=== PATIENT | female | born 1960 | race Caucasian/White ===

== ENCOUNTER 2020-01-19 14:57 | Emergency (ER) | payer BC, SELFPAY ==
--- NOTE | ~2020-01-19 | XR_ITS ---
XR chest 2V 01/19/2020 16:07 Indication: Cough and fever Procedure: 2 view chest Comparison: 09/20/2015 Findings: Bibasilar airspace disease. The lungs are hyperinflated which is consistent with, but not d iagnostic of chronic obstructive pulmonary disease. There are bilateral breast implants. No pleural e ffusion, edema or pneumothorax. Impression: 1: Bibasilar airspace disease may represent atelectasis or developing pneumonia. Reviewed, dictated and finalized at location A. Impression: 1: Bibasilar airspace disease may represent atelectasis or developing pneumonia .
[2020-01-19 15:10] VITALS: BP 148/81; PULSE 118; RESP 28; TEMP 39.5; O2SAT 95
[2020-01-19] MEDS: ACETAMINOPHEN 500 MG TABLET 1000 MG PO (15:30)
[2020-01-19] MEDS: IPRATROPIUM 0.5 MG/ALBUTEROL SULFATE 2.5 MG AMPUL.NEB 3 ML INHALATION ×2 (15:30→16:24)
[2020-01-19 15:33] VITALS: PULSE 106; RESP 24
[2020-01-19 15:47] LABS: Hematocrit 37.7 % (35.0-49.0); Hemoglobin 12.7 g/dL (12.0-15.0); Mean Corpuscular HGB Conc 33.7 g/dL (32.0-36.0); Mean Corpuscular Hemoglobin 32.3 pg (27.0-31.0); Mean Corpuscular Volume 95.9 fL (78.0-102.0); Mean Platelet Volume 8.9 fl (9.2-11.8); Platelet Count Result 329 K/mm3 (150-420); Red Blood Count 3.93 M/mm3 (4.20-5.40); Red Cell Distribution Width 12.5 % (11.6-14.4); White Blood Count 15.7 K/mm3 (4.8-10.8)
[2020-01-19 15:55] LABS: Blood Urea Nitrogen 7 mg/dL (7-18); Calcium 8.9 mg/dL (8.5-10.1); Carbon Dioxide 24 mmol/L (21-32); Chloride 104 mmol/L (98-108); Estimated Glomerular Filt Rate > 60; Glucose 86 mg/dL (70-99); Osmolality Calculated 285 mOsm/kg (285-295); Sodium 139 mmol/L (136-145)
[2020-01-19 16:02] LABS: Influenza Control Valid (Valid)
--- NOTE | 2020-01-19 16:02 | ED.URI ---
HPI - URI/Sore Throat General Chief Complaint: Upper Respiratory Infection Stated Complaint: fever, cough, hot/cold flashes, rib area pain Source: patient Mode of arrival: ambulatory Limitations: no limitations History of Present Illness HPI Narrative: 61-year-old female with a history of COPD. On December 24 she developed a cough which was treated with a 12 day tapering dose of steroids and Z-Aaron. She became markedly better but the cough never completely resolved. One week ago her cough became worse. Two days ago she had a fever of a 101? and increased coughing with shortness of breath and shaking. She felt better yesterday; today coughing, SOB and shaking were worse assoc. with fever of 101?. Today she developed right anterior chest pain made worse with breathing and palpation. For the last 3 days she has had diarrhea but denies abdominal pain/ dysuria. She has not smoked since her dx. of COPD 1 year ago. She has been using her Symbicort and Spiriva regularly, nebulizing albuterol once a day at night. Related Data Home Medications Medication Instructions Recorded Confirmed budesonide-formoterol [Symbicort] 2 puff INHALATION Q12H 01/19/20 01/19/20 bupropion HCl 300 mg PO DAILY 01/19/20 01/19/20 clonazepam 0.5 mg PO BID PRN 01/19/20 01/19/20 levalbuterol HCl 0.63 mg INHALATION Q8-10H PRN 01/19/20 01/19/20 montelukast 10 mg PO DAILY 01/19/20 01/19/20 tiotropium bromide [Spiriva with 1 cap INHALATION DAILY 01/19/20 01/19/20 HandiHaler] Allergies Allergy/AdvReac Type Severity Reaction Status Date / Time Penicillins Allergy Rash Verified 01/19/20 15:21 Review of Systems Constitutional: Constitutional: Reports no additional constitutional complaints Eyes: Comments: no eye symptoms ENT: Denies sore throat Cardiovascular: Cardiovascular: Reports as per HPI and Reports chest pain Respiratory: Respiratory: Reports no additional respiratory complaints Gastrointestinal: Gastrointestinal: Reports no additional gastrointestinal complaints and Denies abdominal pain Genitourinary: Genitourinary: Denies dysuria Musculoskeletal: Comments: negative Integumentary/Breasts: Comments: . Neurologic: Comments: chronic headaches, not recently worse. FORMERLY [facility], [facility] Past Medical History Medical History COPD (chronic obstructive pulmonary disease) Social History Social History (Updated 01/20/20 @ 02:52 by Parvez Hardy MD) Smoking status: Former smoker Gender identity (if verbalized by the patient): Female Exam Const: Other: Speaks in full sentences with some labored breathing. HENMT: Face and sinus: sinuses nontender Mouth: Yes moist mucous membranes Neck: Neck: no lymphadenopathy Chest: Other: tender along the right 4th rib, mid-clavicular line. Resp: Effort & Inspection: labored Auscultation: rales (bases) bilateral, wheezes and diminished lung sounds bilateral and diffuse Other: minor supraclavicular retraction Cardio: Rate: regular rate Rhythm: regular rhythm GI: GI Palp: Yes Soft to palpation and No Tenderness to palpation present (GI) : General: Yes no CVA tenderness Skin: Rashes: no rashes Neuro: General: patient oriented x3 Extrem: General: normal to inspection Course Course Emergency Course: Drop of pulse and RR after neb duoneb x 2 and prednisone. Pt does not want to be admitted. Agrees to treatment recommendations, to return if worse and see PCP on 01/20. Vital Signs Vital signs: Vital Signs Temperature 39.5 C H 01/19/20 15:10 Pulse Rate 118 H 01/19/20 15:10 Respiratory Rate 28 H 01/19/20 15:10 Blood Pressure 148/81 H 01/19/20 15:10 Pulse Oximetry 95 01/19/20 15:10 Temperature 37.1 C 01/19/20 17:35 Pulse Rate 90 01/19/20 18:42 Respiratory Rate 20 01/19/20 18:42 Blood Pressure 105/65 01/19/20 18:42 Pulse Oximetry 95 01/19/20 18:42 MDM - URI/Sore Throat Lab Data Result diagra
[2020-01-19 16:03] LABS: Lactic Acid 1.5 mmol/L (0.4-2.0)
[2020-01-19] MEDS: predniSONE 20 MG TABLET 60 MG PO (16:24)
[2020-01-19 16:25] VITALS: PULSE 107; RESP 20
[2020-01-19 16:30] VITALS: BP 108/62; PULSE 105; RESP 20; O2SAT 100
[2020-01-19 17:35] VITALS: BP 103/62; PULSE 105; RESP 20; TEMP 37.1; O2SAT 95
[2020-01-19] MEDS: levoFLOXacin TAB 500 MG, levoFLOXacin TAB 250 MG 750 MG PO (18:20)
[2020-01-19] MEDS: POTASSIUM CHLORIDE 20 MEQ TABLET PO (18:20)
[2020-01-19 18:42] VITALS: BP 105/65; PULSE 90; RESP 20; O2SAT 95
== END 2020-01-19 18:42 | disposition home or self-care (01) ==
PROVIDERS: Emergency Provider Family Medicine; PCP Internal Medicine
DX: J44.1 Chronic obstructive pulmonary disease with (acute) exacerbation (principal); E87.6 Hypokalemia; R07.81 Pleurodynia; J18.9 Pneumonia, unspecified organism; Z87.891 Personal history of nicotine dependence
CPT/HCPCS: 36415; 71046; 80048; 83605; 85027; 87040; 87077; 87186; 87804; 94640; 99283; 99284; A9270; J7512

== ENCOUNTER 2020-07-11 13:33 | Outpatient (CLI) | payer BC, SELFPAY ==
--- NOTE | ~2020-07-11 | CT_ITS ---
EXAMINATION:CT lung screening DATE: 07/11/2020 14:17 INDICATION: Personal history of nicotine dependence. Smoker who quit 4 years ago with 40 pack year hi story. TECHNIQUE: Computed tomography (CT) of the chest was performed without intravenous contrast. Automate d exposure control and iterative reconstruction technique were employed. The dose-length product (DLP ) was 76.02 mGy-cm. COMPARISON: Chest CT 08/11/2018 FINDINGS: There is severe emphysema. There is mild scarring at the lung apices. A calcified right sahara g nodule and calcified right hilar lymph nodes are consistent with old granulomatous disease. There i s chronic collapse of right middle lobe. No pleural effusion. The heart size is normal. No pericardia l effusion. There is a 4.2 cm fusiform aneurysm of ascending aorta. There are bilateral breast implan ts. Calcifications in the spleen are consistent with old granulomatous disease. There is mild thoraci c spondylosis. IMPRESSION: 1. Lung-RADS category 2: Benign appearance or behavior. Continue annual screening with noncontrast lo w-dose chest CT in 12 months. Reviewed, dictated and finalized at location A. IMPRESSION: 1. Lung-RADS category 2: Benign appearance or behavior. Continue annual screeni ng with noncontrast low-dose chest CT in 12 months.
== END 2020-07-11 13:34 | disposition home or self-care (01) ==
PROVIDERS: PCP Internal Medicine; Visit Provider Internal Medicine
DX: Z12.2 Encounter for screening for malignant neoplasm of respiratory organs (principal); Z87.891 Personal history of nicotine dependence
CPT/HCPCS: G0297

== ENCOUNTER 2020-07-25 08:52 | Outpatient (CLI) | payer BC, SELFPAY ==
--- NOTE | 2020-08-21 09:37 | WPDHOLTEREM ---
Holter/Event Monitor Holter/Event Monitor Date of procedure: 07/25/20 Procedure Type: 30 day event monitor Indications: Palpitations Conclusion: 1. 23 days event monitor between 07/25/20-08/21/20. There are 28 available transmissions for analysis. 2. Predominant rhythm is sinus rhythm. HR range 48-162 bpm; average HR 80 bpm. 3. There are occasional premature supraventricular complexes with a burden of 2%. 1 episode of supraventricular tachycardia lasting 12 beats at 162 bpm on 08/15/20 at 12:23. 4. There are occasional premature ventricular complexes with total burden of 1%. No ventricular tachycardia. 5. No significant pauses greater than 2 seconds. 6. Patient reports 11 symptoms of heart racing, lightheadedness, shortness of breath which demonstrate sinus rhythm, HR range 71-113 bpm with PAC's and PVC's in 9 out of 11 episodes.
== END 2020-07-25 08:53 | disposition home or self-care (01) ==
PROVIDERS: PCP Internal Medicine; Visit Provider Internal Medicine
DX: R00.2 Palpitations (principal); J44.9 Chronic obstructive pulmonary disease, unspecified
CPT/HCPCS: 93270; 94060; 94726; 94729

== ENCOUNTER 2020-09-08 09:36 | Outpatient (CLI) | payer BC, SELFPAY ==
[2020-09-08 09:53] VITALS: O2SAT 98
[2020-09-08 10:03] VITALS: PULSE 110; O2SAT 94
--- NOTE | 2020-09-08 10:07 | HOMEO2EVAL ---
Home Oxygen Evaluation RC: Home Oxygen (O2) Evaluation Start: 09/08/20 10:02 Freq: Status: Active Protocol: RPE Activity Type Activity Date Activity User E-Sign Co-Sign Detail Recorded Client Recorded Date Recorded By Document 09/08/20 09:53 SJB [id number] 09/08/20 10:07 SJB Document 09/08/20 10:03 SJB [id number] 09/08/20 10:07 SJB 09/08/20 09/08/20 09:53 10:03 Home O2 Evaluation Test Phase Resting Exercise Oxygen Delivery Room Air Room Air Pulse Oximetry (90-100 %) 98 94 Pulse Rate (60-100 beats/min) 110 H Activity Tolerance Good Good Rating of Perceived Dyspnea (PD) +1 Mild, +1 Mild, Noticeable to Noticeable to the Participant the Participant but Not to an but Not to an Observer Observer Rate of Perceived Exertion (PE) 9 Very light Ambulation Distance (feet) 1,500 Home Oxygen Evaluation Comments Pt walked independently approx 1500 ft on room air. Tolerated very well. Sp02s remained between 92-98%. Hr ranged from 84-115. Treatment Charges O2 Evaluation
== END 2020-09-08 09:37 | disposition home or self-care (01) ==
LOC: CHSCARD 09:41
PROVIDERS: PCP Internal Medicine
DX: J43.2 Centrilobular emphysema (principal)
CPT/HCPCS: 94618

== ENCOUNTER 2020-11-14 14:57 | Outpatient (CLI) | payer SELFPAY | END 2020-11-14 14:58 | disposition home or self-care (01) | LOC: CHSLAB 15:00 | PROVIDERS: PCP Internal Medicine; Visit Provider Specialist | DX: L28.1 Prurigo nodularis (principal) | CPT/HCPCS: 88305 ==

== ENCOUNTER 2021-01-15 13:50 | Outpatient (CLI) | payer BC, SELFPAY | END 2021-01-15 13:51 | disposition home or self-care (01) | LOC: ANHCOVIDVC 13:50 | PROVIDERS: PCP Internal Medicine; Visit Provider Internal Medicine | DX: Z23 Encounter for immunization (principal) | CPT/HCPCS: 0001A; 91300 ==

== ENCOUNTER 2021-02-05 13:42 | Outpatient (CLI) | payer BC, SELFPAY | END 2021-02-05 13:43 | disposition home or self-care (01) | LOC: ANHCOVIDVC 13:42 | PROVIDERS: PCP Internal Medicine; Visit Provider Internal Medicine | DX: Z23 Encounter for immunization (principal) | CPT/HCPCS: 0002A; 91300 ==

== ENCOUNTER 2021-07-20 08:29 | Outpatient (CLI) | payer BC, SELFPAY ==
--- NOTE | ~2021-07-20 | XR_ITS ---
EXAMINATION: XR barium swallow DATE: 07/20/2021 09:19 INDICATION: Dysphagia, postnasal drip TECHNIQUE: The patient drank thick barium, gas-producing crystals, and thin barium. Fluoroscopy of th e hypopharynx and esophagus was performed. Fluoroscopy exposure time was 1.2 minutes. The DAP for thi s procedure was 2.9 Gycm2. COMPARISON: None. FINDINGS: There is no mass or stricture of the esophagus. There is prominent contraction of the crico pharyngeus muscle. Esophageal motility is normal. There is no hiatal hernia. There was no gastroesoph ageal reflux with provocative maneuvers. IMPRESSION: 1. Prominent cricopharyngeus contraction, otherwise unremarkable esophagram. Reviewed, dictated and finalized at location B.
== END 2021-07-20 08:30 | disposition home or self-care (01) ==
LOC: CHSIMG 08:30
PROVIDERS: PCP Internal Medicine; Visit Provider Internal Medicine
DX: R13.10 Dysphagia, unspecified (principal)
CPT/HCPCS: 74220

== ENCOUNTER 2021-07-26 16:16 | Outpatient (CLI) | payer BC, SELFPAY ==
[2021-07-26 17:25] LABS: SARS-CoV-2 RNA PCR Positive (Negative)
== END 2021-07-26 16:17 | disposition home or self-care (01) ==
LOC: CHSLAB 16:18
PROVIDERS: PCP Internal Medicine; Visit Provider Internal Medicine
DX: U07.1 COVID-19 (principal)
CPT/HCPCS: C9803; U0003; U0005

== ENCOUNTER 2021-07-31 10:32 | Outpatient (CLI) | payer BC, SELFPAY ==
--- NOTE | 2021-07-31 10:45 | PC.NURSE ---
Pt to room 211 amb. A&Ox3. Pt has no complaints today. Says she had a sore throat and a fever when first diagnosed last week but hasn't had symptoms for a couple of days. Oriented to room. Call lewis in reach. Reminded to call with needs.
--- NOTE | 2021-07-31 11:00 | PC.NURSE ---
Consent signed for [employer]. Pt has no questions or concerns.
[2021-07-31] MEDS: ACETAMINOPHEN 325 MG TABLET 650 MG PO (11:05)
[2021-07-31] MEDS: FAMOTIDINE 20 MG TABLET PO (11:06)
--- NOTE | 2021-07-31 11:24 | PC.NURSE ---
Pt complains of severe back pain. Infusion stopped. Pt changed position in bed. Pt has no other sympton or complaints. Will continue to observe.
[2021-07-31 11:25] VITALS: BP 119/83; PULSE 75; RESP 20; TEMP 36.1; O2SAT 95
[2021-07-31] MEDS: methylPREDNISolone SOD SUCC 40 MG VIAL IV PUSH (11:41)
--- NOTE | 2021-07-31 11:41 | PC.NURSE ---
Pt has no complaints at present. Solumedrol 40mg given IV push per Dr. Moore order. IV infusion restarted as ordered. Reminded to call with needs or complaints.
--- NOTE | 2021-07-31 12:08 | PC.NURSE ---
IV infusion continues. Pt has no complaints. Call lewis in reach. Reminded to call with needs or symptoms.
--- NOTE | 2021-07-31 12:43 | PC.NURSE ---
IV infused. Pt tolerated well. Pt has no questions or complaints. Continues to rest per bed for continued observation.
--- NOTE | 2021-07-31 13:15 | PC.NURSE ---
Pt has no question or complaints. A&Ox3. Discharged to home ambulatory with .
== END 2021-07-31 10:33 | disposition home or self-care (01) ==
PROVIDERS: PCP Internal Medicine; Visit Provider Internal Medicine
DX: Z23 Encounter for immunization (principal); U07.1 COVID-19; M54.9 Dorsalgia, unspecified
CPT/HCPCS: 96374; A9270; J2920; J7050; M0243

== ENCOUNTER 2021-09-11 09:10 | Outpatient (CLI) | payer BC, SELFPAY ==
--- NOTE | ~2021-09-11 | XR_ITS ---
EXAMINATION: XR chest 2V DATE: 09/11/2021 10:45 INDICATION: Emphysema and COPD TECHNIQUE: PA and lateral views of the chest are obtained. COMPARISON: 01/19/2020 FINDINGS: The lungs are free of acute opacities. There is no pleural effusion or pneumothorax. The ca rdiomediastinal silhouette is normal. There is mild thoracic spondylosis. Bilateral breast implants a re noted. IMPRESSION: 1. No acute cardiopulmonary abnormality. Reviewed, dictated and finalized at location B.
[2021-09-11 09:15] VITALS: PULSE 100; O2SAT 98
[2021-09-11 09:22] VITALS: PULSE 130; O2SAT 90
--- NOTE | 2021-09-11 10:16 | HOMEO2EVAL ---
Evaluation was performed at [facility] [place] Home Oxygen Evaluation RC: Home Oxygen (O2) Evaluation Start: 09/11/21 10:10 Freq: Status: Active Protocol: RPE Activity Type Activity Date Activity User E-Sign Co-Sign Detail Recorded Client Recorded Date Recorded By Document 09/11/21 09:15 HAL [id number] 09/11/21 10:16 HAL Document 09/11/21 09:22 HAL [id number] 09/11/21 10:16 HAL 09/11/21 09/11/21 09:15 09:22 Home O2 Evaluation Test Phase Resting Exercise Oxygen Delivery Room Air Room Air Pulse Oximetry (90-100 %) 98 90 Pulse Rate (60-100 beats/min) 100 130 H Activity Tolerance Excellent Rating of Perceived Dyspnea (PD) +2 Mild, Some Difficulty, Noticeable to the Observer Rate of Perceived Exertion (PE) 11 Fairly light Ambulation Distance (feet) 1,400 Home Oxygen Evaluation Comments Patient walked briskly on her own without pausing. Sp02 stable 90-93% during exercise . HR 100-130 during exercise . Treatment Charges O2 Evaluation - Outpatient
== END 2021-09-11 09:11 | disposition home or self-care (01) ==
LOC: CHSLAB 09:13 → CHSIMG 09:13
PROVIDERS: PCP Internal Medicine; Visit Provider Internal Medicine
DX: J43.9 Emphysema, unspecified (principal)
CPT/HCPCS: 71046; 94060; 94618; 94726; 94729

== ENCOUNTER 2021-09-27 08:22 | Outpatient (CLI) | payer BC, SELFPAY ==
--- NOTE | 2021-09-27 10:30 | ECHO_ITS ---
Patient Info Name: Michelle Lim Age: 61 years : 1960 Gender: Female Ht: 69 in Wt: 157 lbs BSA: 1.86 m2 HR: 79 bpm BP: 135 / 86 mmHg Exam Date: 09/27/2021 9:31 AM Exam Location: [facility] Patient Status: Outpatient Admit Date: 09/27/2021 Staff Ordering Physician: Leeann Harrington MD Bilingual Patient Support Caseworker: Estephania Attending Provider: Leeann Harrington MD Exam Type: CA echo doppler color flow Study Info Indications I10 - Essential (primary) hypertension Complete two-dimensional, color flow and Doppler transthoracic echocardiogram is performed. Strain analysis performed. Summary 1. Complete two-dimensional, color flow and Doppler transthoracic echocardiogram is performed. 2. Left ventricular chamber dimension is mildly enlarged. 3. Left ventricular systolic function is moderately reduced, estimated at 40-45%. 4. The left ventricular diastolic function is grade I diastolic dysfunction. 5. E/e' 5 is not elevated. 6. Global longitudinal strain is slightly abnormal at -16.5%. 7. There is mild aortic valve sclerosis. 8. There is mild mitral valve regurgitation. 9. There is mild tricuspid valve regurgitation. 10. No pulmonary hypertension, estimated pulmonary arterial systolic pressure is 31 mmHg. 11. There is mild pulmonic regurgitation. Left Ventricle E/e' 5 is not elevated. Global longitudinal strain is slightly abnormal at -16.5%. Left ventricular chamber dimension is mildly enlarged. Left ventricular systolic function is moderately reduced, estimated at 40-45%. The left ventricular diastolic function is grade I diastolic dysfunction. Right Ventricle Right ventricular systolic function is normal and normal TAPSE 1.9 cm.. Right ventricular chamber dimension is normal. Left Atria Left atrial chamber dimension is normal. Right Atria Right atrial chamber dimension is normal. Aortic Valve The aortic valve is trileaflet. There is mild aortic valve sclerosis. There is no aortic valve stenosis. There is no aortic valve regurgitation. Pulmonic Valve There is mild pulmonic regurgitation. Mitral Valve There is no mitral valve stenosis. There is mild mitral valve regurgitation. Tricuspid Valve There is mild tricuspid valve regurgitation. No pulmonary hypertension, estimated pulmonary arterial systolic pressure is 31 mmHg. Pericardium/Pleural There is no pericardial effusion. Inferior Vena Cava Normal inferior vena cava with >50% collapse upon inspiration consistent with normal right atrial pressure, 5 mmHg. Aorta The aortic root size at the sinus of Valsalva is normal. Left Ventricular Outflow Tract Name Value Normal LVOT 2D LVOT Diameter 2.6 cm LVOT Doppler LVOT Peak Velocity 58 cm/s LVOT Peak Gradient 1 mmHg LVOT Mean Gradient 1 mmHg LVOT VTI 11 cm LVOT VTI/AV VTI Ratio 0.5 LVOT Stroke Volume 59 ml Mitral Valve Name
== END 2021-09-27 08:23 | disposition home or self-care (01) ==
LOC: CHSIMG 08:23
PROVIDERS: PCP Internal Medicine
DX: J43.2 Centrilobular emphysema (principal); I27.20 Pulmonary hypertension, unspecified
CPT/HCPCS: 93306

== ENCOUNTER → 2021-12-31 12:12 | Outpatient (CLI) | payer BC, SELFPAY ==
--- NOTE | ~2021-12-31 | MM_ITS ---
EXAMINATION: MM scrn lorrie implant BI w quentin HISTORY: Screening mammogram TECHNIQUE: Craniocaudal and mediolateral oblique 3-D tomosynthesis images with implant displacement a nd synthetic 2-D images were generated. Craniocaudal and mediolateral oblique views of the breasts wi thout implant displacement were obtained using full field digital mammography. CAD analysis was submi tted and interpreted. COMPARISON: 08/05/2019, 04/27/2018 bilateral implant screening mammogram examinations BREAST PARENCHYMAL COMPOSITION: There are scattered areas of fibroglandular density. FINDINGS: Status post bilateral augmentation mammoplasty.. There is no evidence of suspicious mass, c alcification, or architectural distortion to suggest malignancy in either breast. There has been no s uspicious interval change. IMPRESSION: 1. No mammographic evidence of malignancy. 2. Recommend routine screening mammography in one year. BI-RADS Category 1: Negative Reviewed, dictated and finalized at location A. ER LATHE OPERATOR
== END ==
PROVIDERS: PCP Internal Medicine; Visit Provider Internal Medicine
DX: Z12.31 Encounter for screening mammogram for malignant neoplasm of breast (principal)
CPT/HCPCS: 77063; 77067

== ENCOUNTER 2022-02-07 08:00 | Outpatient (RCR) | payer SELFPAY | END 2022-04-11 14:15 | disposition home or self-care (01) | LOC: CHSCPRIII 08:00 | PROVIDERS: PCP Internal Medicine | DX: J44.9 Chronic obstructive pulmonary disease, unspecified (principal) | CPT/HCPCS: 99199 ==

== ENCOUNTER 2022-07-01 12:59 | Outpatient (CLI) | payer BC, SELFPAY ==
--- NOTE | ~2022-07-01 | XR_ITS ---
EXAMINATION: XR chest 2V DATE: 07/01/2022 13:22 INDICATION: Shortness of breath and cough, COVID 19 positive TECHNIQUE: PA and lateral views of the chest are obtained. COMPARISON: 09/11/2021 FINDINGS: The lungs are free of acute opacities. Severe emphysema is noted. No pleural effusion or pn eumothorax. The cardiomediastinal silhouette is normal. Bilateral breast implants are noted. There is mild thoracic spondylosis. IMPRESSION: 1. Severe emphysema. Reviewed, dictated and finalized at location B. IMPRESSION: 1. Severe emphysema.
[2022-07-01 13:26] LABS: Basophils Absolute Auto 0.05 K/mm3 (0.00-0.10); Basophils Percent Auto 0.8 % (0.0-1.0); Eosinophils Absolute Auto 0.05 K/mm3 (0.02-0.50); Eosinophils Percent Auto 0.8 % (1.0-6.0); Hematocrit 43.9 % (35.0-49.0); Hemoglobin 14.3 g/dL (12.0-15.0); Immature Granulocyte Absolute 0.02 K/mm3 (0.00-0.00); Immature Granulocyte Percent A 0.3 % (0.0-0.0); Lymphocytes Absolute Auto 0.96 K/mm3 (1.10-4.50); Lymphocytes Percent Auto 14.5 % (18.0-42.0); Mean Corpuscular HGB Conc 32.6 g/dL (32.0-36.0); Mean Corpuscular Hemoglobin 31.7 pg (27.0-31.0); Mean Corpuscular Volume 97.3 fL (78.0-102.0); Mean Platelet Volume 8.8 fl (9.2-11.8); Monocytes Absolute Auto 1.09 K/mm3 (0.10-0.90); Monocytes Percent Auto 16.5 % (2.0-11.0); Neutrophils Absolute Auto 4.4 K/mm3 (1.7-7.2); Neutrophils Percent Auto 67.1 % (50.0-70.0); Platelet Count Result 269 K/mm3 (150-420); Red Blood Count 4.51 M/mm3 (4.20-5.40); Red Cell Distribution Width 12.1 % (11.6-14.4); White Blood Count 6.6 K/mm3 (4.8-10.8)
[2022-07-01 13:48] LABS: Alanine Aminotransferase 27 U/L (14-59); Alkaline Phosphatase 85 U/L (46-116); Anion Gap 7 mmol/L (8-16); Aspartate Amino Transferase 21 U/L (15-37); Bilirubin,Total 0.4 mg/dL (0.00-1.00); Blood Urea Nitrogen 7 mg/dL (7-18); Calcium 8.8 mg/dL (8.5-10.1); Carbon Dioxide 28 mmol/L (21-32); Chloride 104 mmol/L (98-108); Estimated Glomerular Filt Rate > 60; Glucose 89 mg/dL (70-99); Osmolality Calculated 285 mOsm/kg (285-295); Potassium 3.9 mmol/L (3.5-5.1); Sodium 139 mmol/L (136-145); Total Protein 7.2 g/dL (6.4-8.2)
== END 2022-07-01 13:00 | disposition home or self-care (01) ==
LOC: CHSLAB 13:01
PROVIDERS: PCP Internal Medicine; Visit Provider Nurse Practitioner Family
DX: U07.1 COVID-19 (principal); J06.9 Acute upper respiratory infection, unspecified
CPT/HCPCS: 36415; 71046; 80053; 85025

== ENCOUNTER 2022-09-20 14:08 | Emergency (ER) | payer MEDICARE, SELFPAY ==
[2022-09-20 14:16] VITALS: BP 128/89; PULSE 84; RESP 16; TEMP 36.4; O2SAT 99
--- NOTE | 2022-09-20 14:33 | ED.SKABFB ---
HPI - Skin/Abscess/Foreign Bdy General Chief complaint: Skin/Abscess/Foreign Body Stated complaint: rash and itchy on head since friday Time Seen by Provider: 09/20/22 14:12 Source: patient and RN notes reviewed Mode of arrival: ambulatory Limitations: no limitations History of Present Illness MD complaint: rash Onset (ago): day(s) (3) Location: head and face Severity: mild Quality: pruritic Pain Consistency: other (pain-free) Relieving factors: none Exacerbating factors: none Context: other (known eczema) Associated symptoms: denies other symptoms Treatments prior to arrival: none Related Data Home Medications Medication Instructions Recorded Confirmed budesonide-formoterol HFA 160 2 puff inhalation Q12H 01/19/20 08/09/21 mcg-4.5 mcg/actuation aerosol inhaler (Symbicort) bupropion HCl 150 mg tablet,12 hr 300 mg PO DAILY 01/19/20 08/09/21 sustained-release clonazepam 0.5 mg tablet 0.5 mg PO BID PRN Anxiety 01/19/20 08/09/21 montelukast 10 mg tablet 10 mg PO DAILY 01/19/20 08/09/21 tiotropium bromide 18 mcg capsule 1 cap inhalation DAILY 01/19/20 08/09/21 with inhalation device (Spiriva with HandiHaler) Allergies Allergy/AdvReac Type Severity Reaction Status Date / Time Penicillins Allergy Rash Verified 08/09/21 13:44 Review of Systems Review of Systems: All systems reviewed & are unremarkable except as noted in HPI and below Constitutional: Constitutional: Reports no additional constitutional complaints Eyes: Eyes: Reports no additional eye complaints ENT: Reports system reviewed and no additional complaints, except as documented Comments: scalp itchy rash Cardiovascular: Cardiovascular: Reports no additional cardiovascular complaints Respiratory: Respiratory: Reports no additional respiratory complaints Gastrointestinal: Gastrointestinal: Reports no additional gastrointestinal complaints Genitourinary: Genitourinary: Reports no additional female genitourinary complaints Musculoskeletal: Musculoskeletal: Reports no additional musculoskeletal complaints Integumentary/Breasts: Skin/Breast: Reports system reviewed and no additional complaints, except as docu Neurologic: Reports system reviewed and no additional complaints, except as documented Psychiatric: Psychiatric: Reports no additional psychiatric complaints Endocrine: Endocrine: Reports no additional endocrine complaints Hematologic/Lymphatic: Hematologic/Lymphatic: Reports no additional hematologic/lymphatic complaints Allergic/Immunologic: Allergic/Immunologic: Reports no additional allergic/immunologic complaints PMFSH Past Medical History Medical History Allergies Anxiety COPD (chronic obstructive pulmonary disease) Eczema Skin cancer Family History Family History Mother Asthma Hypertension Sibling Cancer Thyroid disorder Grandparent Hypertension Social History Social History Smoking status: Former smoker Alcohol intake: never Substance use: never Gender identity (if verbalized by the patient): Female Exam Const: General: no acute distress and well nourished Nutritional Appearance: well nourished Orientation/consciousness: patient oriented x3 Limitations: no limitations HENMT: Head: normal to inspection Ears: external ears normal, TM's normal bilaterally and EAC's normal Face/Nose/Sinus: Normal external nose present, Normal nares present, normal facial exam and sinuses nontender Face and sinus: normal facial exam and sinuses nontender Mouth: Yes Normal oral and palatal mucosa present and Yes moist mucous membranes Teeth and gingiva: dentition normal Throat: posterior oropharynx normal Other: mild scalp rash with excoriations Eyes: Conjunctivae: conjunctivae normal Pupils: Equal, round and reactive pupils present EO
[2022-09-20] MEDS: methylPREDNISolone SOD SUCC 125 MG VIAL IM (14:50)
[2022-09-20 15:24] VITALS: BP 122/84; PULSE 80; RESP 20; TEMP 36.6; O2SAT 98
== END 2022-09-20 15:29 | disposition home or self-care (01) ==
PROVIDERS: Emergency Provider Emergency Medicine; PCP Internal Medicine
DX: L30.9 Dermatitis, unspecified (principal); J44.9 Chronic obstructive pulmonary disease, unspecified; Z87.891 Personal history of nicotine dependence
CPT/HCPCS: 96372; 99283; J2930

== ENCOUNTER 2022-12-03 13:29 | Outpatient (CLI) | payer MEDICARE, SELFPAY ==
[2022-12-03 13:46] LABS: Basophils Absolute Auto 0.09 K/mm3 (0.00-0.10); Basophils Percent Auto 1.3 % (0.0-1.0); Eosinophils Absolute Auto 0.13 K/mm3 (0.02-0.50); Eosinophils Percent Auto 1.9 % (1.0-6.0); Hematocrit 42.4 % (35.0-49.0); Hemoglobin 13.9 g/dL (12.0-15.0); Immature Granulocyte Absolute 0.04 K/mm3 (0.00-0.00); Immature Granulocyte Percent A 0.6 % (0.0-0.0); Lymphocytes Absolute Auto 1.46 K/mm3 (1.10-4.50); Lymphocytes Percent Auto 21.2 % (18.0-42.0); Mean Corpuscular HGB Conc 32.8 g/dL (32.0-36.0); Mean Corpuscular Volume 97.5 fL (78.0-102.0); Mean Platelet Volume 8.9 fl (9.2-11.8); Monocytes Absolute Auto 0.61 K/mm3 (0.10-0.90); Monocytes Percent Auto 8.9 % (2.0-11.0); Neutrophils Absolute Auto 4.6 K/mm3 (1.7-7.2); Neutrophils Percent Auto 66.1 % (50.0-70.0); Platelet Count Result 352 K/mm3 (150-420); Red Blood Count 4.35 M/mm3 (4.20-5.40); Red Cell Distribution Width 12.3 % (11.6-14.4); White Blood Count 6.9 K/mm3 (4.8-10.8)
[2022-12-03 14:26] LABS: Alanine Aminotransferase 15 U/L (14-59); Albumin Level 4.2 g/dL (3.4-5.0); Alkaline Phosphatase 91 U/L (46-116); Anion Gap 11 mmol/L (8-16); Aspartate Amino Transferase 20 U/L (15-37); Bilirubin,Total 0.4 mg/dL (0.00-1.00); Blood Urea Nitrogen 9 mg/dL (7-18); Calcium 8.7 mg/dL (8.5-10.1); Carbon Dioxide 27 mmol/L (21-32); Chloride 104 mmol/L (98-108); Estimated Glomerular Filt Rate > 60; Free T3 2.37 pg/mL (2.18-3.98); Free T4 Free Thyroxine 0.86 ng/dL (0.76-1.46); Glucose 79 mg/dL (70-99); NT Pro B Type Natriuretic Pept 63 pg/mL (0-125); Osmolality Calculated 291 mOsm/kg (285-295); Potassium 4.3 mmol/L (3.5-5.1); Sodium 142 mmol/L (136-145); Thyroid Stimulating Hormone 4.65 uIU/mL (0.36-3.74); Total Protein 6.9 g/dL (6.4-8.2)
--- NOTE | 2022-12-05 12:41 | WPDHOLTEREM ---
Holter/Event Monitor Holter/Event Monitor Date of procedure: 12/03/22 Holter/Event Procedure: 24 Hr Holter Monitor Indications: Palpitations Conclusion: 1. 24 hour holter monitor on 12/03/22. 2. Predominant rhythm is sinus rhythm. HR range 59-148 bpm; average HR 86 bpm. 3. There are 199 premature supraventricular complexes and 1 supraventricular couplet. There is 1 episode of atrial tachycardia at 185 bpm lasting 4 beats at 11:22. 4. There are 410 premature ventricular complexes, 12 ventricular bigeminy. No ventricular tachycardia. 5. No sinoatrial or atrioventricular blocks. No significant pauses greater than 2 seconds. 6. Patient reports 1 episode of lightheadedness/off balance which demonstrate sinus tachycardia at 102 bpm.
== END 2022-12-03 13:30 | disposition home or self-care (01) ==
LOC: CHSLAB 13:32
PROVIDERS: PCP Internal Medicine; Visit Provider Internal Medicine
DX: R00.2 Palpitations (principal); R06.00 Dyspnea, unspecified
CPT/HCPCS: 36415; 80053; 83880; 84439; 84443; 84481; 85025; 93225; 93226

== ENCOUNTER 2023-02-24 18:07 | Emergency (ER) | payer MEDICARE, SELFPAY ==
[2023-02-24 18:07] VITALS: BP 134/94; PULSE 70; RESP 15; TEMP 36.8; O2SAT 99
--- NOTE | 2023-02-24 18:30 | ED.GENADULT ---
HPI - General Adult General Chief complaint: Back Pain/Injury Stated complaint: lower back pain Time Seen by Provider: 02/24/23 18:19 History of Present Illness HPI narrative: the patient is a 62-year-old woman with a history of COPD. she was pulling weeds from her garden 2 weeks ago when she developed pain in the lower back, in the center of the lower back radiating to both sides. Not radiating elsewhere such as to the buttocks or down either leg. The pain has been constant for the last 2 weeks, waxing and waning in intensity, improved by Tylenol but not completely relieved. No paresthesias in the lower extremities. No heavy lifting or twisting. No other complaints. No urinary complaints such as dysuria urinary urgency or frequency. No abdominal pain. No nausea vomiting. No fevers or chills. No URI symptoms. Related Data Home Medications Medication Instructions Recorded Confirmed bupropion HCl 150 mg tablet,12 hr 300 mg PO DAILY 01/19/20 02/24/23 sustained-release clonazepam 0.5 mg tablet 0.5 mg PO BID PRN Anxiety 01/19/20 02/24/23 tiotropium bromide 18 mcg capsule 1 cap inhalation DAILY 01/19/20 02/24/23 with inhalation device (Spiriva with HandiHaler) budesonide 160 mcg-glycopyr 9 2 inh inhalation BID 02/24/23 02/24/23 mcg-formot 4.8 mcg/actuation HFA inhaler (Breztri Aerosphere) Allergies Allergy/AdvReac Type Severity Reaction Status Date / Time Penicillins Allergy Rash Verified 02/24/23 18:21 Review of Systems Review of Systems: All systems reviewed & are unremarkable except as noted in HPI and below Constitutional: Constitutional: Reports as per HPI, Reports no additional constitutional complaints, Denies chills, Denies excessive sweating, Denies fatigue, Denies fever(s), Denies headache(s) and Denies weakness Eyes: Eyes: Reports as per HPI, Reports no additional eye complaints, Denies change in vision and Denies photophobia ENT: Reports system reviewed and no additional complaints, except as documented, Reports as per HPI, Denies dysphagia, Denies vertigo, Denies dizziness, Denies headache(s), Denies lip swelling, Denies nasal congestion, Denies sore throat, Denies throat swelling and Denies tongue swelling Cardiovascular: Cardiovascular: Reports as per HPI, Reports no additional cardiovascular complaints, Denies chest pain, Denies syncope, Denies rapid heart rate and Denies dyspnea Respiratory: Respiratory: Reports as per HPI, Reports no additional respiratory complaints, Denies chest congestion, Denies cough, Denies dyspnea and Denies wheezing Gastrointestinal: Gastrointestinal: Reports as per HPI, Reports no additional gastrointestinal complaints, Denies abdominal pain, Denies constipation, Denies dysphagia, Denies diarrhea, Denies nausea and Denies vomiting Genitourinary: Genitourinary: Reports as per HPI, Denies hematuria, Denies urinary frequency, Denies dysuria, Denies urinary incontinence and Denies urinary urgency Musculoskeletal: Musculoskeletal: Reports no additional musculoskeletal complaints, Reports back pain, Denies myalgias, Denies arthralgias, Denies joint swelling and Denies numbness Integumentary/Breasts: Skin/Breast: Reports system reviewed and no additional complaints, except as docu, Denies pruritus, Denies erythema, Denies rash and Denies skin ulcer Neurologic: Reports system reviewed and no additional complaints, except as documented, Reports as per HPI, Denies confusion, Denies vertigo, Denies dizziness, Denies syncope, Denies headache(s), Denies focal weakness, Denies numbness and Denies weakness Psychiatric: Psychiatric: Reports as per HPI, Denies anxiety, Denies confusion, Denies depression, Denies homicidal ideation and Denies suicidal ideation Endocrine: Endocrine: Reports no additional endocrine complaints, Denies excessive sweating, Denies fatigue, Denies polydipsia and Denies polyuria Hematologic/Lymphatic: Hematologic/Lymphatic: Reports no additional hematologic/lymph
== END 2023-02-24 18:53 | disposition home or self-care (01) ==
PROVIDERS: Emergency Provider Emergency Medicine; PCP Internal Medicine
DX: M54.50 Low back pain, unspecified (principal); J44.9 Chronic obstructive pulmonary disease, unspecified; Z85.828 Personal history of other malignant neoplasm of skin; Z87.891 Personal history of nicotine dependence
CPT/HCPCS: 99283

== ENCOUNTER 2023-09-01 13:10 | Emergency (ER) | payer MEDICARE, SELFPAY ==
[2023-09-01 13:18] VITALS: BP 133/97; PULSE 93; RESP 18; TEMP 36.9; O2SAT 97
--- NOTE | 2023-09-01 13:32 | ED.GENADULT ---
HPI - General Adult General Chief complaint: Unspecified Stated complaint: tick embedded Time Seen by Provider: 09/01/23 13:14 History of Present Illness HPI narrative: the patient is a 63-year-old woman who was [place] They have dogs in the household. She took a shower yesterday evening without incident. This morning, she noted a tick in the right lower quadrant of her abdomen that she has seems has been there since yesterday afternoon. No other symptoms. One attempt at removal was done at home with hot tweazers without success. She comes for evaluation. No symptoms of arthritis or carditis. No chest pain or dyspnea. No other complaints. No previous tick bites recently but did have them several decades ago. Related Data Home Medications Medication Instructions Recorded Confirmed bupropion HCl 150 mg tablet,12 hr 300 mg PO DAILY 01/19/20 09/01/23 sustained-release clonazepam 0.5 mg tablet 0.5 mg PO BID PRN Anxiety 01/19/20 09/01/23 tiotropium bromide 18 mcg capsule 1 cap inhalation DAILY 01/19/20 02/24/23 with inhalation device (Spiriva with HandiHaler) budesonide 160 mcg-glycopyr 9 2 inh inhalation BID 02/24/23 02/24/23 mcg-formot 4.8 mcg/actuation HFA inhaler (Breztri Aerosphere) montelukast 10 mg tablet 10 mg PO DAILY 09/01/23 09/01/23 Allergies Allergy/AdvReac Type Severity Reaction Status Date / Time Penicillins Allergy Rash Verified 09/01/23 13:15 Review of Systems Review of Systems: All systems reviewed & are unremarkable except as noted in HPI and below Constitutional: Constitutional: Denies chills, Denies excessive sweating, Denies fatigue, Denies fever(s), Denies headache(s) and Denies weakness Eyes: Eyes: Denies change in vision and Denies photophobia ENT: Denies dysphagia, Denies dizziness, Denies headache(s), Denies lip swelling, Denies nasal congestion, Denies sore throat and Denies tongue swelling Cardiovascular: Cardiovascular: Denies chest pain, Denies syncope, Denies rapid heart rate and Denies dyspnea Respiratory: Respiratory: Denies cough, Denies dyspnea and Denies wheezing Gastrointestinal: Gastrointestinal: Denies abdominal pain, Denies constipation, Denies dysphagia, Denies diarrhea, Denies nausea and Denies vomiting Genitourinary: Genitourinary: Denies hematuria, Denies urinary frequency, Denies dysuria and Denies urinary urgency Musculoskeletal: Musculoskeletal: Denies back pain, Denies myalgias, Denies arthralgias, Denies joint swelling and Denies numbness Integumentary/Breasts: Skin/Breast: Denies pruritus, Denies erythema and Denies rash Comments: tick stuck in RLQ of abdomen Neurologic: Denies confusion, Denies dizziness, Denies syncope, Denies headache(s), Denies focal weakness, Denies numbness and Denies weakness Psychiatric: Psychiatric: Denies anxiety and Denies confusion Endocrine: Endocrine: Denies excessive sweating and Denies fatigue Hematologic/Lymphatic: Hematologic/Lymphatic: Denies easy bleeding and Denies easy bruising Allergic/Immunologic: Allergic/Immunologic: Denies lip swelling, Denies tongue swelling and Denies wheezing PMFSH Past Medical History Medical History Allergies Anxiety COPD (chronic obstructive pulmonary disease) Eczema Skin cancer Family History Family History Mother Asthma Hypertension Sibling Cancer Thyroid disorder Grandparent Hypertension Social History Social History Smoking status: Former smoker Alcohol intake: never Substance use: never Gender identity (if verbalized by the patient): Female Exam Const: General: healthy appearing, no acute distress, alert and well nourished Nutritional Appearance: well nourished Orientation/consciousness: patient oriented x3 Limitations: no limi
[2023-09-01 13:58] VITALS: BP 133/97; PULSE 93; RESP 18; TEMP 36.9; O2SAT 97
== END 2023-09-01 14:05 | disposition home or self-care (01) ==
LOC: CHSED 13:46
PROVIDERS: Emergency Provider Emergency Medicine; PCP Internal Medicine
DX: S30.861A Insect bite (nonvenomous) of abdominal wall, initial encounter (principal); J44.9 Chronic obstructive pulmonary disease, unspecified; Z79.899 Other long term (current) drug therapy; Z85.828 Personal history of other malignant neoplasm of skin; Z87.891 Personal history of nicotine dependence; W57.XXXA Bitten or stung by nonvenomous insect and other nonvenomous arthropods, initial encounter
CPT/HCPCS: 99283

== ENCOUNTER 2024-02-22 22:19 | Observation (INO) | payer MEDICARE, SELFPAY ==
--- NOTE | ~2024-02-22 | CT_ITS ---
CT of the Abdomen and Pelvis: Indication: Abdominal Technique: 2.5 mm axial scans were obtained through the abdomen and pelvis following intravenous adm inistration of 100 cc of Omnipaque 350. Dose reduction technique was used on this scan by utilizing a utomated exposure control and iterative reconstruction technique. The dose-length product (DLP) was 4 44.82 mGy-cm. Findings: Scans through the lung bases are unremarkable. The liver, spleen, pancreas, gallbladder, adrenals and kidneys are within normal limits. No evidence of aortic aneurysm. No lymphadenopathy. No bowel obstruction. Appendix dilated to 9 mm with possible minimal perivesical inflammatory change. No abscess or free air. Images through the pelvis were performed. Urinary bladder unremarkable. No pelvic mass seen. No ascit es. Impression: Findings suspicious for early acute appendicitis. Reviewed, dictated and finalized at location . Impression: Findings suspicious for early acute appendicitis.
[2024-02-22 22:21] VITALS: BP 133/94; PULSE 110; RESP 19; TEMP 36.7; O2SAT 97
--- NOTE | 2024-02-22 22:36 | ED.ABDPAIN ---
HPI - Abdominal Pain General Chief Complaint: Abdominal Pain Stated Complaint: RLQ abd pain Time Seen by Provider: 02/22/24 22:28 History of Present Illness HPI narrative: 63-year-old female presents to emergency department for abdominal pain that started this morning. Patient states she woke up with a stomach ache in her epigastrium and periumbilical region. States she did not feel like eating breath this but ate a small amount of lunch. States her pain is persistent is now located in the right lower quadrant. She is concerned that there is something wrong with her appendix. She states she felt somewhat feverish earlier but did not log her temperature. She denies nausea vomiting, diarrhea, dysuria or hematuria. Denies prior abdominal surgeries. Last bowel movement was this morning and normal. Related Data Home Medications Medication Instructions Recorded Confirmed bupropion HCl 150 mg tablet,12 hr 300 mg PO DAILY 01/19/20 09/01/23 sustained-release clonazepam 0.5 mg tablet 0.5 mg PO BID PRN Anxiety 01/19/20 09/01/23 tiotropium bromide 18 mcg capsule 1 cap inhalation DAILY 01/19/20 02/24/23 with inhalation device (Spiriva with HandiHaler) budesonide 160 mcg-glycopyr 9 2 inh inhalation BID 02/24/23 02/24/23 mcg-formot 4.8 mcg/actuation HFA inhaler (Breztri Aerosphere) montelukast 10 mg tablet 10 mg PO DAILY 09/01/23 09/01/23 Allergies Allergy/AdvReac Type Severity Reaction Status Date / Time Penicillins Allergy Rash Verified 09/01/23 13:15 Review of Systems Review of Systems: CONSTITUTIONAL: Denies fever, chills, or sweats. EYES: Denies visual changes, redness, or discharge. ENT: Denies rhinorrhea, congestion, sore throat, or otalgia. CARDIOVASCULAR: Denies chest pain, palpitations, or edema. RESPIRATORY: Denies cough or dyspnea. GASTROINTESTINAL: See HPI GENITOURINARY: Denies dysuria or hematuria. SKIN: Denies rash or itching. MUSCULOSKELETAL: Denies back pain, joint pain, or myalgia. NEUROLOGIC: Denies headache, numbness, or weakness. PSYCHIATRIC: Denies anxiety or depression. [facility] Past Medical History Medical History Allergies Anxiety COPD (chronic obstructive pulmonary disease) Eczema Skin cancer Family History Family History Mother Asthma Hypertension Sibling Cancer Thyroid disorder Grandparent Hypertension Social History Social History Smoking status: Former smoker Alcohol intake: never Substance use: never Gender identity (if verbalized by the patient): Female Exam Narrative: GENERAL: Well-appearing, well-nourished, and in no acute distress. HEAD: Normocephalic, atraumatic. EYES: PERRLA and EOMI. ENT: Nares clear, no rhinorrhea or epistaxis. Mucous membranes moist. NECK: Supple. CHEST: Clear to auscultation. No respiratory distress. HEART: Regular rate and rhythm. No murmur heard. Normal peripheral pulses. ABDOMEN: quiet bowel sounds. Abdomen soft with tenderness in the right lower quadrant With voluntary guarding. No rebound or rigidity. Negative Rovsing's and obturator sign. Tenderness at McBurney's point. EXTREMITIES: Normal range of motion. No edema. SKIN: Warm, dry, no rash. NEURO: No focal deficits. Alert and oriented x3 Course Vital Signs Vital signs: Vital Signs Temperature 98.0 F 02/22/24 22:21 Pulse Rate 110 H 02/22/24 22:21 Respiratory Rate 19 02/22/24 22:21 Blood Pressure 133/94 H 02/22/24 22:21 Pulse Oximetry 97 02/22/24 22:21 Oxygen Delivery Room Air 02/22/24 22:21 Temperature 97.8 F 02/22/24 22:42 Pulse Rate 105 H 02/22/24 22:53 Respiratory Rate 16 02/22/24 22:53 Blood Pressure 138/104 H 02/22/24 22:53 Pulse Oximetry 99 02/22/24 22:53 Oxygen Delivery Room Air 02/22/24 22:21 MDM - Abdominal Pain
--- NOTE | 2024-02-22 22:39 | ECG_ITS ---
SEE SCANNED COPY FOR CONFIRMED REPORT MTDD
[2024-02-22 22:42] VITALS: BP 137/106; PULSE 106; RESP 15; TEMP 36.6; O2SAT 98
[2024-02-22 22:45] LABS: Basophils Absolute Auto 0.1 K/mm3 (0.0-0.1); Basophils Percent Auto 0.5 % (0.2-1.2); Eosinophils Absolute Auto 0.1 K/mm3 (0-0.3); Eosinophils Percent Auto 0.4 % (0-4.4); Hematocrit 42.4 % (37.0-47.0); Hemoglobin 14.1 g/dL (12.0-15.0); Immature Granulocyte Absolute 0.09 K/mm3 (0.00-0.031); Immature Granulocyte Percent A 0.5 % (0-0.5); Lymphocytes Absolute Auto 0.96 K/mm3 (0.9-3.2); Lymphocytes Percent Auto 5.5 % (18.3-44.2); Mean Corpuscular HGB Conc 33.3 g/dl (32-36); Mean Corpuscular Hemoglobin 31.9 pg (26-34); Mean Corpuscular Volume 95.9 fl (80-100); Monocytes Absolute Auto 1.1 K/mm3 (0.1-0.6); Monocytes Percent Auto 6.2 % (2.6-8.5); Neutrophils Absolute Auto 15.1 K/mm3 (1.3-6.7); Neutrophils Percent Auto 86.9 % (45.5-73.1); Platelet Count Result 307 k/mm3 (150-375); Red Blood Count 4.42 M/mm3 (4.2-5.4); Red Cell Distribution Width 12.5 % (11.5-14.5); White Blood Count 17.4 K/mm3 (4.5-10.0)
[2024-02-22] MEDS: SODIUM CHLORIDE 0.9% IV 1,000 ML 999 ML IV CONT (22:47)
[2024-02-22] MEDS: MORPHINE SULFATE (*CRX) 4 MG/ML INJ IV PUSH (22:47)
[2024-02-22 22:51] LABS: Appearance Urine Clear (Clear); Bacteria Urine None Seen /hpf; Bilirubin Urine Negative (Negative); Blood Urine Trace (Negative); Color Urine Yellow (Yellow); Glucose Urine UA Negative (Negative); Ketones Urine Negative (Negative); Leukocyte Esterase Ur Negative LEU/UL (Negative); Nitrate Urine Negative (Negative); Non Pathogenic Casts 0-2; Protein Urine Negative (Negative); RBC Urine 0-2 /hpf (0-2); Specific Grav Ur 1.007 (1.001-1.035); Squamous Epithelial Cell Urine None Seen /hpf (Few); Urobilinogen Urine 0.2 mg/dL (<2.0); WBC Urine 0-5 /hpf (0-3); pH Urine 5.5 (5.0-9.0)
[2024-02-22 22:53] VITALS: BP 138/104; PULSE 105; RESP 16; O2SAT 99
[2024-02-22 22:56] LABS: Add Urine Microscopic? YES
[2024-02-22 22:57] LABS: Alanine Aminotransferase 20 U/L (6-35); Albumin Level 5.1 g/dL (3.5-5.1); Alkaline Phosphatase 94 U/L (38-126); Anion Gap 9 mmol/L (4-12); Aspartate Amino Transferase 27 U/L (14-36); Bilirubin,Total 0.9 mg/dL (0.2-1.3); Blood Urea Nitrogen 10 mg/dL (7-17); Carbon Dioxide 25 mmol/L (22-30); Chloride 107 mmol/L (98-107); Estimated CRCL calculation 65 ml/min; Estimated Glomerular Filt Rate > 60; Glucose 113 mg/dL (65-110); Lipase 79 U/L (23-300); Sodium 141 mmol/L (137-145)
[2024-02-22 23:22] LABS: Lactic Acid Reflex 0.9 mmol/L (0.7-2.0)
[2024-02-22 23:24] LABS: Troponin I < 0.012 ng/mL (0.000-0.034)
[2024-02-23] VITALS (11 sets, daily range): BP systolic 116–151; BP diastolic 74–96; PULSE 79–102; RESP 16–23; TEMP 36.2–37.6; O2SAT 93–100; BMI 24.1
[2024-02-23] MEDS: metroNIDAZOLE 500 MG/ISO 100ML 500 MG/100 ML BAG 100 MG IVPB ×2 (00:06→05:36)
--- NOTE | 2024-02-23 01:07 | ADMGEN ---
This patient, Michelle Lim, was admitted to [facility] Surg Room 327-01. Patient/family oriented to hospital policies and general routines including ID bracelet, bed and alarms, visiting hours, pain management, procedures, bathroom and other care routines, personal items, smoking policy, room service/diet, and visiting hours. Information on how to activate the Rapid Response Team has been discussed. Patient/Family are encouraged to report perceived risks to care and to ask questions if they do not understand what they are told or what they should do.
[2024-02-23] MEDS: levoFLOXacin 750 MG/D5W 150 ML 750 MG/150 ML BAG 100 MG IVPB (01:27)
[2024-02-23] MEDS: SODIUM CHLORIDE 0.9% IV 1,000 ML 100 ML IV CONT (01:27)
--- NOTE | 2024-02-23 09:47 | PM.IMHP ---
H&P: HPI History of Present Illness Date/Time: 02/23/24 09:47 Chief Complaint: Right lower quadrant abdominal pain Narrative: This is a 63-year-old woman with COPD and anxiety, who presented to the ER last night with complaints of right lower quadrant abdominal pain. She reports waking up yesterday with mild periumbilical pain. She initially thought she had a ?stomach ache? and avoided eating breakfast. She then tried eating something and felt it made her pain worse. Throughout the day, her pain became more severe and localized to the right lower quadrant. Denies nausea, vomiting, fever, chills, diarrhea, or any other complaints. She was concerned about appendicitis and presented to the ER for evaluation. [place] [id number] scan of the abdomen and pelvis showed findings suspicious for early acute appendicitis with a dilated appendix of 9 mm with possible minimal surrounding inflammatory change. She was admitted and started on IV Levaquin and Flagyl due to a penicillin allergy. She is now seen this morning. Any movement and lying flat aggravates her pain. She denies ever having pain like this in the past. Previous abdominal surgeries include a tubal ligation and eventually had a reversal of her tubal. Review of Systems Review of Systems: All systems reviewed & are unremarkable except as noted in HPI and below PMFSH Past Medical History Medical History Allergies Anxiety COPD (chronic obstructive pulmonary disease) Eczema Skin cancer Surgical History Surgical History History of reversal of tubal ligation History of tubal ligation Family History Family History Mother Asthma Hypertension Sibling Cancer Thyroid disorder Grandparent Hypertension Social History Social History Smoking status: Former smoker Alcohol intake: never Substance use: never Do You Feel Safe in your Home?: Yes Lack of Transportation: No Lack of Food: Never True Current Housing: I Have Housing Concerned About Future Housing: No Difficulty Paying Gas/Electric Bills: No Difficulty Paying for Meds: No Currently Unemployed: No Education: High School Diploma/GED Difficulty w/ Childcare or Family Care: No Gender identity (if verbalized by the patient): Female Spiritual care concerns: No Meds Home Medications and Allergies Home Medications Medication Instructions Recorded Confirmed Type bupropion HCl 150 mg tablet,12 hr 300 mg PO DAILY 01/19/20 02/23/24 History sustained-release clonazepam 0.5 mg tablet 0.5 mg PO BID PRN Anxiety 01/19/20 02/23/24 History budesonide 160 mcg-glycopyr 9 2 inh inhalation BID 02/24/23 02/23/24 History mcg-formot 4.8 mcg/actuation HFA inhaler (Breztri Aerosphere) montelukast 10 mg tablet 10 mg PO DAILY 09/01/23 02/23/24 History Allergies Allergy/AdvReac Type Severity Reaction Status Date / Time Penicillins Allergy Rash Verified 09/01/23 13:15 Vital Signs Vital Signs - 24 hr 02/22/24 22:21 02/22/24 22:42 02/22/24 22:53 Temperature 98.0 F 97.8 F Pulse Rate 110 H 106 H 105 H Respiratory Rate 19 15 16 Blood Pressure 133/94 H 137/106 H 138/104 H Pulse Oximetry 97 98 99 Oxygen Delivery Room Air 02/23/24 00:20 02/23/24 00:41 02/23/24 06:00 Temperature 98.4 F Pulse Rate 93 96 102 H Respiratory Rate 16 16 20 Blood Pressure 146/96 H 151/74 H 132/94 H Pulse Oximetry 96 96 97 Oxygen Delivery 02/23/24 09:19 Temperature Pulse Rate Respiratory Rate Blood Pressure Pulse Oximetry Oxygen Delivery Room Air Exam Const: General: comfortable and no acute distress Nutritional Appearance: average body habitus Orientation/consciousness: patient oriented x3 HENMT: Head: normocephalic
--- NOTE | 2024-02-23 10:16 | WPDHPUPDATE1 ---
History and Physical Update Update Date/Time: 02/23/24 10:16 History and Physical has been reviewed, including an updated exam of the patient. There are NO changes in the patient's condition. Risks, benefits, and alternatives have been discussed and questions answered. Patient agrees to proceed with procedure.
[2024-02-23] MEDS: LACTATED RINGERS 1,000 ML 30 ML IV CONT (12:00)
--- NOTE | 2024-02-23 12:59 | WPDANESEPPF ---
Anes - Initial Pre Proc Eval Procedure: Operation Date: 02/23/24 13:00 Proposed Procedures p Laparoscopic Appendectomy - Isela Pelaez MD Date/Time: 02/23/24 12:59 Surgeon: Isela Pelaez MD Pre Op Diagnosis: Acute appendicitis Patient Data Age: 63 Gender: F Height: 1.75 m Weight: 74.1 kg Last Vital Signs Temp 99.7 F H 02/23/24 11:48 Pulse 79 02/23/24 11:48 Resp 18 02/23/24 11:48 BP 140/91 H 02/23/24 11:48 Pulse Ox 97 02/23/24 11:48 O2 Del Method Room Air 02/23/24 11:48 Allergies Allergy/AdvReac Type Severity Reaction Status Date / Time Penicillins Allergy Rash Verified 02/23/24 12:13 Home Medications Medication Instructions Recorded Confirmed Type bupropion HCl 150 mg tablet,12 hr 300 mg PO DAILY 01/19/20 02/23/24 History sustained-release clonazepam 0.5 mg tablet 0.5 mg PO BID PRN Anxiety 01/19/20 02/23/24 History budesonide 160 mcg-glycopyr 9 2 inh inhalation BID 02/24/23 02/23/24 History mcg-formot 4.8 mcg/actuation HFA inhaler (Breztri Aerosphere) montelukast 10 mg tablet 10 mg PO DAILY 09/01/23 02/23/24 History Laboratory Tests 02/22/24 02/22/24 02/22/24 22:38 22:39 23:02 WBC 17.4 H K/mm3 (4.5-10.0) RBC 4.42 M/mm3 (4.2-5.4) Hgb 14.1 g/dL (12.0-15.0) Hct 42.4 % (37.0-47.0) MCV 95.9 fl (80-100) MCH 31.9 pg (26-34) MCHC 33.3 g/dl (32-36) RDW 12.5 % (11.5-14.5) Plt Count 307 k/mm3 (150-375) MPV 9.0 fl (7.4-10.4) Immature Gran % (Auto) 0.5 % (0-0.5) Neut % (Auto) 86.9 H % (45.5-73.1) Lymph % (Auto) 5.5 L % (18.3-44.2) [place] % (Auto) 6.2 % (2.6-8.5) Eos % (Auto) 0.4 % (0-4.4) Baso % (Auto) 0.5 % (0.2-1.2) Lymph # (Auto) 0.96 K/mm3 (0.9-3.2) [place] # (Auto) 1.1 H K/mm3 (0.1-0.6) Eos # (Auto) 0.1 K/mm3 (0-0.3) Baso # (Auto) 0.1 K/mm3 (0.0-0.1) Abs Immat Gran (auto) 0.09 H K/mm3 (0.00-0.031) Absolute Neuts (auto) 15.1 H K/mm3 (1.3-6.7) Absolute Nucleated RBC 0.000 K/mm3 (0.0-0.012) Nucleated RBC % 0.0 % (0.0-0.2) Sodium 141 mmol/L (137-145) Potassium 4.0 mmol/L (3.4-5.0) Chloride 107 mmol/L (98-107) Carbon Dioxide 25 mmol/L (22-30) Anion Gap 9 mmol/L (4-12) BUN 10 mg/dL (7-17) Creatinine 0.80 mg/dL (0.7-1.0) Estim Creat Clear Calc 65 ml/min Estimated GFR > 60 (59 - ) Glucose 113 H mg/dL (65-110) Lactic Acid 0.9 mmol/L (0.7-2.0) Calcium 10.0 mg/dL (8.4-10.2) Total Bilirubin 0.9 mg/dL (0.2-1.3) AST 27 U/L (14-36) ALT 20 U/L (6-35) Alkaline Phosphatase 94 U/L (38-126) Troponin I < 0.012 ng/mL (0.000-0.034) Total Protein 8.0 g/dL (6.3-8.2) Albumin 5.1 g/dL (3.5-5.1) Lipase 79 U/L (23-300) Urine Color Yellow (Yellow) Urine Appearance Clear (Clear) Urine pH 5.5 (5.0-9.0) Ur Specific [place] 1.007 (1.001-1.035) Urine Protein Negative mg/dL (Negative) Urine Glucose (UA) Negative mg/dL (Negative) Urine Ketones Negative mg/dL (Negative) Ur Blood (Man) Trace (Negative) Urine Nitrate Negative (Negative) Urine Bilirubin Negative (Negative) Urine Urobilinogen 0.2 mg/dL (<2.0) Leukocyte Esterase Rfl Negative [place]IN[place]/UL (Negative) Urine RBC 0-2 /hpf (0-2) Urine WBC 0-5 /hpf (0-3) Ur Squamous Epith Cells None seen /hpf (Few) Urine Bacteria None seen /hpf Urine Casts 0-2 Patient hx anesthesia problems: none Family hx anesthesia problems: none Results
[2024-02-23] MEDS: BUPIVACAINE/EPINEPHRINE 0.5% 30 ML VIAL INFILTRATE (13:37)
--- NOTE | 2024-02-23 14:11 | P.OP_ITS ---
Procedure Note - Detailed Date of Procedure 02/23/24 Pre-op Diagnosis Acute appendicitis Post-op Diagnosis Same Procedure Performed laparoscopic appendectomy Surgeon Isela Pelaez MD Anesthesia General Indications 63-year-old female presenting to the emergency department complaining of lower abdominal pain. Workup in the emergency department, including CT, was significant for acute appendicitis. Findings acute appendicitis no evidence of perforation Description of Procedure The patient was taken to the operating room and placed in the supine position. After adequate induction of general anesthesia, the patient was prepped and draped in the normal sterile fashion. A time-out was then done to verify the patient's identity, as well as the procedure being performed. I began by making a 5 mm incision in the infraumbilical region, through this a Veress needle was placed in the peritoneal cavity. CO2 gas was then insufflated and after adequate pneumoperitoneum was achieved the Veress needle was removed. Then placed a 5 mm Optiview trocar under direct visualization into the peritoneal cavity. I then insufflated through this trocar site and the endoscope was placed into the trocar. Under direct visualization, placed a further 5 mm suprapubic port as well as an additional 12 mm port in the left lower abdomen. At this point identified the cecum, I retracted the cecum both medially and supe riorly allowing me to expose the appendix. The appendix was noted to be very dilated and inflamed especially towards the tip. The appendix was noted to be very adherent to the right lateral sidewall as well as the ileum. I was able to bluntly dissect the appendix from these adhesions. I then was able to locate the base of the appendix with the cecum. I created a window with the [place] dissector between the appendix itself and the mesoappendix. I then transected the mesoappendix with a white vascular staple load x2. The Endo-NANCY was then reloaded with a blue staple load and I transected the base of the appendix. Once the specimen was completely detached, an endo-pouch was placed into the 12 mm port site and the specimen was removed through the endo-pouch. The appendiceal specimen will be sent to pathology for further review. I then copiously irrigated the right lower quadrant. Hemostasis was noted at both staple lines no other pathology was seen in this area. I then moved the camera to the suprapubic port to check our its port of entry. No iatrogenic injury or other pathology was noted in the upper abdomen. I then closed the 12 mm port site with a Maged code and 0 Vicryl suture under direct visualization. At this point, the abdomen was desufflated and all ports were removed. All port sites were closed with 4 Monocryl subcuticular suture. Dermabond was placed on all wounds. The patient tolerated the procedure well and was extubated in the operating room postop. She will be sent to the recovery room in stable condition. Estimated Blood Loss 10 Drains No Packing No Pathology Yes Complications No immediate complications Condition Stable Disposition PACU [facility] Billing Surgery - Charge Forward: Surgery Billing
--- NOTE | 2024-02-24 14:13 | PM.DS ---
DS: Admitting Diagnosis Discharge Date 02/23/24 Admitting Diagnosis acute appendicitis DS: Discharge Diagnosis Discharge Diagnosis (1) Acute appendicitis: Qualifiers: Acute appendicitis type: with localized peritonitis Appendicitis abscess presence: without abscess Appendicitis gangrene presence: without gangrene Appendicitis perforation presence: without perforation Qualified Code(s): K35.30 - Acute appendicitis with localized peritonitis, without perforation or gangrene Code(s): K35.80 - Unspecified acute appendicitis Status: Acute Assessment and Plan: doing well, routine postop care, home c po analgesia, await path, f/u 2wks DS: Summary Hospital Course Reason for hospitalization: acute appendicitis Hospital Course: Pt is a 63 y/o F presenting to the hospital c acute appendicitis. Pt was admitted to the surgical service and started on IV abx. Upon evaluation, decision was made for urgent appendectomy. Pt taken to OR and lap appy performed, please see full operative report for details. Postop, pt was transferred back to surgical floor. Pt did well and was able to jorge diet and ambulate s issue. She will be dc'd home c po analgesia and f/u 2 wks. Status at Discharge Functional status at discharge: independent ambulation Overall status at discharge: patient is progressing back to baseline Time Spent with Patient Time attestation: Total time spent providing and/or coordinating discharge services: Time spent: Less than 30 minutes Exam Const: General: cooperative, comfortable and no acute distress Resp: Auscultation: clear to auscultation bilaterally Cardio: Rate: regular rate Rhythm: regular rhythm GI: Inspection: normal to inspection, distended and incision GI Palp: Yes abdominal tenderness and Yes Soft to palpation DS: Data Data Completed and Pending Completed studies during hospitalization: Pending at discharge 02/23/24 13:33 Surgical [PTH] Routine Labs on day of discharge: Preliminary micro results at discharge 02/23/24 00:13 Blood Culture - Preliminary Blood 02/23/24 00:01 Blood Culture - Preliminary Blood Discharge Plan Discharge Attending physician on discharge: Isela Morse Consulting providers: Rochelle Diggs; Nancy Brown; Mike Da Silva; Christian Gallegos Discharging Clinician: Isela Morse Anticipated Discharge Date/Time: 02/23/24 18:00 Patient Disposition: Home, Self-Care Activity: may shower and as tolerated Diet: as tolerated Wound Care Instructions: incision open to air Discharge Instructions: DISCHARGE INSTRUCTION SHEET FOR HERNIA, GALLBLADDER AND APPENDIX SURGERIES DR. MORSE PATIENT TO TAKE HOME 1. May shower in 24 hours, no soaking in bath x 2weeks. 2. Call office for: Wound increasingly painful or bleeding Vomiting Fever of greater than 101 degrees 3. If no bowel movement for three days, take 1 oz. (30 ml) Milk of Magnesia or MiraLax 17g 1 to 2 times daily. 4. No heavy lifting > 10-15 pounds x 6 weeks for hernia repairs and 2 weeks for laparoscopic cholecystectomy or appendectomy. 5. No driving for 3 days or while taking narcotic pain medications. 6. Ice to surgical site for 48 hours (30 min on, then 30 min off). 7. Up walking 10-30 minutes three times per day. 8. Resume previous home medications. 9. Follow-up 10-14 days in office for wound check or as previously scheduled. ([id number]) 10. Oral pain medications prescription to be sent to pharmacy. Take Tylenol 500mg every 6 hours and Ibuprofen 600mg every 6 hours for the first 2 days, then as needed. 11. NUTRITION: Start out by drinking fluids and increase your diet as tolerated. If you experience nausea, try dry toast, crackers, and 7-UP. If nausea or vomiting persists, contact your surgeon?s office. 12. Gallbladders-Low Fat Diet for 2 weeks (send care
== END 2024-02-23 17:53 | disposition home or self-care (01) ==
LOC: ANHED 02-23 00:06 → ANH3MEDSUR 02-23 00:27
PROVIDERS: Admitting Provider Surgery; Emergency Provider Physician Assistant; PCP Internal Medicine; Visit Provider Surgery
PROC: 0DTJ4ZZ Resection of Appendix, Percutaneous Endoscopic Approach (ICD-10-PCS; CPT 44970; principal; 2024-02-23 13:00)
DX: K35.32 Acute appendicitis with perforation, localized peritonitis, and gangrene, without abscess (principal); J44.9 Chronic obstructive pulmonary disease, unspecified; F41.9 Anxiety disorder, unspecified; Z87.891 Personal history of nicotine dependence; Z79.51 Long term (current) use of inhaled steroids
CPT/HCPCS: 44970; 36415; 74177; 80053; 81001; 83605; 83690; 84484; 85025; 87040; 88304; 93005; 96361; 96365; 96366; 96375; 99285; A9270; G0378; J0330; J1100; J1596; J1836; J1956; J2250; J2270; J2405; J2704; J3010; J7030; J7120; Q9967

== ENCOUNTER 2024-04-28 13:47 | Outpatient (RCR) | payer MEDICARE, SELFPAY ==
--- NOTE | 2024-04-28 15:12 | PTOPEVAL1 ---
Assessment and note entered by Sp Lauren Evaluation Information Assessment Status Evaluation Diagnosis strain of cervical portion of the trapezius muscle right Onset 07/11/23 Subjective Information Pt. reports she began first noticing pain in the area of the right upper trap in July. She reports that it began to ease over the winter months. She states that the pain has returned this spring. She describes pain in the area of the upper trap on the right and along the scapula. She states that pain is mostly noticed with activities such as yard work, or extensive use of the right arm. She is using ibuprofen and Tylenol on occasion to address her pain. She states that she has no complication with sleep due to her pain. She states that movement of the head does not increase her pain. She states that pain will increase with light lifting activities and driving . She reports that her goal for therapy is to reduce her neck pain. Reported Pain Level Pain Score 2: Self Report Assessment PT Clinical Summary Pt. is a 64 year old female who enters the clinic due to neck pain and right upper trap strain. Presentation is consistent with cervical radiculopathy on this date. Pt. currently presents with upper extremity weakness, impaired postural awareness, limited c-spine mobility and pain. Continued skilled PT is indicated in order to improve these areas to allow for improved comfort with IADL performance. Plan of Care Interventions Electrical Stimulation,Hot Pack/Cold Pack,Manual Therapy,Mechanical Traction,Neuro Re-education, Patient/Caregiver Educati,Therapeutic Activities, Therapeutic Exercise PT Services Indicated Yes Treatment Frequency and 2x/week x 8 visits Duration These treatments will address the objective and functional deficits as defined above. The patient will be advanced safely and appropriately in order for the patient to progress towards his/her prior level of function. Additional exercises will be introduced and as well as a comprehensive home exercise program upon discharge, if needed, ?to ensure carryover of functional gains achieved in the clinic. This treatment plan has been reviewed and agreement upon by the patient.
--- NOTE | 2024-04-28 15:12 | OPREHPOC ---
Outpatient Therapy Plan of Care This is a Multidisciplinary Plan of Care that may contain components documented by all disciplines (PT, OT, and ST.) PT Problem 1 PT Problem #1 Knowledge Deficit PT Goal 1 Goal Pt. will be independent with a HEP addressing postural awareness Target Visit 2 PT Problem 2 PT Problem #2 Pain PT Goal 1 Goal Pt. will report pain levels at 1/10 at worst with all household activities. Target Visit 8 PT Problem 3 PT Problem #3 Impaired Strength PT Goal 1 Goal Pt. will present with 5/5 proximal u.e. strength Pt. will demonstrate improve postural awareness at the shoulder in sitting upon visual assessment PT Problem 4 PT Problem #4 Impaired Functional Mobil PT Goal 1 Goal Pt. will present with less than 10% limitation on the NDI Target Visit 8
--- NOTE | 2024-05-20 10:09 | PCPTNOTE ---
Cancelled session due to illness.
--- NOTE | 2024-06-01 17:15 | OPREHPOC ---
Outpatient Therapy Plan of Care This is a Multidisciplinary Plan of Care that may contain components documented by all disciplines (PT, OT, and ST.) PT Problem 1 PT Problem #1 Knowledge Deficit PT Goal 1 Goal Pt. will be independent with a HEP addressing postural awareness Target Visit 2 Progress Met PT Problem 2 PT Problem #2 Pain PT Goal 1 Goal Pt. will report pain levels at 1/10 at worst with all household activities. Target Visit 8 Progress Met PT Problem 3 PT Problem #3 Impaired Strength PT Goal 1 Goal Pt. will present with 5/5 proximal u.e. strength Pt. will demonstrate improve postural awareness at the shoulder in sitting upon visual assessment Progress Partially Met PT Problem 4 PT Problem #4 Impaired Functional Mobil PT Goal 1 Goal Pt. will present with less than 10% limitation on the NDI Target Visit 8 Progress Not Met
--- NOTE | 2024-06-01 17:15 | PTOPDC ---
Assessment and note entered by JT File, PT Evaluation Information Assessment Status Discharge Diagnosis strain of cervical portion of the trapezius muscle right Onset 07/11/23 Subjective Information patient reports she feels Good today. she reports she is doing much better. she reports she is ready to DC therapy today. Reported Pain Level Pain Score 0: Self Report Assessment PT Clinical Summary mrs. trujillo presents to skilled PT services for her 8th skilled PT visit today. she presents with improved UE strength, improve cervical rotation/ side bending, and decreased pain. she has met goals for HEP, pain, and partial achievement of strength. she will DC skilled PT today, and continue with HEP independent at home. Plan of Care PT Services Indicated Yes
== END 2024-06-01 10:19 | disposition home or self-care (01) ==
LOC: CHSPT 13:47
PROVIDERS: Visit Provider Nurse Practitioner Family
DX: S16.1XXD Strain of muscle, fascia and tendon at neck level, subsequent encounter (principal)
CPT/HCPCS: 97014; 97110; 97112; 97140; 97161; G0283

== ENCOUNTER 2025-03-09 12:23 | Outpatient (CLI) | payer MEDICARE, SELFPAY ==
[2025-03-09 12:41] LABS: Basophils Absolute Auto 0.12 K/mm3 (0.00-0.10); Basophils Percent Auto 1.8 % (0.0-1.0); Eosinophils Absolute Auto 0.16 K/mm3 (0.02-0.50); Eosinophils Percent Auto 2.4 % (1.0-6.0); Hematocrit 41.4 % (35.0-42.0); Hemoglobin 13.4 g/dL (11.7-13.8); Immature Granulocyte Absolute 0.03 K/mm3 (0.00-0.00); Immature Granulocyte Percent A 0.5 % (0.0-0.0); Lymphocytes Absolute Auto 1.31 K/mm3 (1.10-4.50); Lymphocytes Percent Auto 19.9 % (18.0-42.0); Mean Corpuscular HGB Conc 32.4 g/dL (32-36); Mean Corpuscular Hemoglobin 31.2 pg (27.0-31.0); Mean Corpuscular Volume 96.5 fL (78.0-102.0); Mean Platelet Volume 8.8 fl (9.2-11.8); Monocytes Absolute Auto 0.69 K/mm3 (0.10-0.90); Monocytes Percent Auto 10.5 % (2.0-11.0); Neutrophils Absolute Auto 4.26 K/mm3 (1.70-7.20); Neutrophils Percent Auto 64.9 % (50.0-70.0); Platelet Count Result 296 K/mm3 (150-420); Red Blood Count 4.29 M/mm3 (4.20-5.40); Red Cell Distribution Width 12.1 % (11.6-14.4); White Blood Count 6.6 K/mm3 (4.8-10.8)
[2025-03-09 13:12] LABS: Add Urine Microscopic? NO; Appearance Urine Clear (Clear); Bilirubin Urine Negative (Negative); Blood Urine Trace-intact (Negative); Color Urine Light Yellow (Yellow); Glucose Urine UA Negative (Negative); Ketones Urine Negative (Negative); Leukocyte Esterase Ur Negative (Negative); Nitrate Urine Negative (Negative); Protein Urine Negative (Negative); Specific Grav Ur <= 1.005 (1.010-1.020); Urobilinogen Urine 0.2 mg/dL (0.2-1.0); pH Urine 5.5 (5.0-8.0)
--- OUTSIDE RECORDS SUMMARY | 2025-03-09 13:24 | XMS_ITS | Clinical Summary ---
Author Organization [facility] Address [address] [place] [address] Phone Care Team Providers Care Book Jogger Name Role Phone Connor Moore MD Primary Care Provider [phone] Allergies Active Allergy Reactions Criticality Noted Date Comments Penicillins Hives High 12/30/2017 Medications buPROPion HCl (WELLBUTRIN SR) 150 mg Sustained Release 12 hour tablet Take 150 mg by mouth 2 times daily. 4 8 Active albuterol HFA 90 mcg inhaler Take 2 Puffs by inhalation every 6 hours as needed for Shortness of Breath. Active montelukast (SINGULAIR) 10 mg tablet Take 1 Tablet (10 mg) by mouth daily. 30 Tablet 4 8 Active clonazePAM (KlonoPIN) 0.5 mg Tablet Take 0.5 mg by mouth 2 times daily. Active levalbuterol (XOPENEX) 0.63 mg/3 mL Solution for Nebulization Take 3 mL (0.63 mg) by inhalation every 8 hours as needed for Shortness of Breath. 270 mL 2 9 Active acetaminophen (TYLENOL) 325 mg tablet Take 325 mg by mouth every 4 hours as needed. Active fluticasone propionate (FLONASE) 50 mcg/spray [place], Suspension nasal inhaler Administer 2 Sprays in each nostril 1 time daily as needed for Rhinitis. Active omeprazole (PriLOSEC) 20 mg Capsule, Delayed Release(E.C.) Take 20 mg by mouth 1 time daily as needed. Active cetirizine (ZyrTEC) 10 mg tablet Take 10 mg by mouth 1 time daily as needed for Allergies. Active MAGNESIUM ORAL Take 400 mg by mouth daily. Active cyclobenzaprine (FLEXERIL) 10 mg tablet 3 Active cetirizine (ZyrTEC) 10 mg tablet Take 1 Tablet (10 mg) by mouth daily. 30 Tablet 5 3 Active budesonide (PULMICORT RESPULE) 0.25 mg/2 mL Suspension for Nebulization Take by inhalation 2 times daily. Active budesonide-glycop yr-formoterol (Breztri Aerosphere) 160-9-4.8 mcg/actuation HFA Aerosol Inhaler inhale two puffs by mouth twice a day 10.7 Gram 10 4 Active Active Problems Problem Noted Date Diagnosed Date DCM (dilated cardiomyopathy) 03/14/2022 Overview (03/14/2022): Added automatically from request for surgery [id number] Abnormal cardiovascular stress test 03/14/2022 Overview (03/14/2022): Added automatically from request for surgery [id number] Pulmonary hypertension 09/19/2021 Atelectasis pulmonary 08/27/2019 Ex-smoker 08/27/2019 Centrilobular emphysema 08/27/2019 Encounter for screening for lung cancer 08/27/20 19 COPD 12/30/2017 Encounters Date Type Department Care Team Description 02/22/2025 External Device Data STL ABSTRACTION Provider, Abstract 12/29/2024 External Device Data ST[facility] ABSTRACTION Provider, Abstract 12/21/2024 Patient Outreach [facility] [address] [address] Nilo Anderson, RAMY Follow Up (Follow up from routine chart review. Left VM and contact information for pt to call and set up appointment for OP COPD ed) 12/14/2024 External Device Data STL ABSTRACTION Provider, Abstract from Last 3 Months Immunizations Immunization Administration Dates Next Due (PFIZER)(12 YR UP) COVID-19 VACCINE - EMERGENCY USE AUTHORIZATION, MRNA, [id number](PF) 30 MCG/0.3 ML IM SUSP 10/25/2021,02/05/2021,01/15/2021 Influenza Seasonal Unspecifi ed Formulation IM 06/21/2021,08/10/2017 Family History Medical History Relation Name Comments Arrhythmia Maternal Grandfather Isaac Colón Heart Attack Maternal Grandfather Isaac Colón High Cholesterol Maternal Grandfather Isaac Colón Cancer Mother Abdulaziz Cope High Cholesterol Mother Abdulaziz Cope My mom i s currently taking medication for high Hypertension Mother Abdulaziz Cope Anemia Sister Tami Had low iron Hypertension Sister Tami My mom and my s ister are currently on high blood pressure Relation Name Status Comments Father Maternal Grandfather Isaac Colón Mother Abdulaziz Cope Alive Sister Tami Social History Tobacco Use Types Packs/Day Years Used Date Smoking Tobacco: Former Cigarettes Q uit: 11/29/1976 Smokeless Tobacco: Never Tobacco Cessation:Counseling Given: Not Answered Alcohol Use Standard Drinks/Week Comments No 0 (1 standard drink = 0.6 oz pur e alcohol) Comments No Sex and Gender Information Value Date Recorded Sex Assigned at Not on file Legal 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 Gender Identity Not on file Sexual Orientation Not on file Last Filed Vital Signs Vital Sign Reading Time Taken Comments Blood Pressure 126/80 11/30/2024 11:40 AM ETL SOFTWARE ENGINEER Pulse 61 11/30/2024 11:40 AM ETL SOFTWARE ENGINEER Temperature 36.5 C (97.7 F) 03/21/2022 10:35 AM CDT Respiratory Rate 16 08/05/2022 1:24 PM CDT Oxygen Saturation 97% 11/30/2024 11: 40 AM ETL SOFTWARE ENGINEER Inhaled Oxygen Concentration - - Weight 74.3 kg (163 lb 12.8 oz) 025 11:40 AM ETL SOFTWARE ENGINEER Height 172.7 cm (5' 8 ) 11/30/2024 11:4 0 AM ETL SOFTWARE ENGINEER Body Mass Index 24.91 11/30/2024 11:40 AM ETL SOFTWARE ENGINEER Plan of Treatment Upcoming Encounters Date Type Department Care Team (Late st Contact Info) Description 05/30/2025 11:45 AM CDT Office Visit [facility]mon[facility] [address] [place] [address] Leeann Harrington MD [address] [place] [address] Health Maintenance Due Date Last Done Comments PNEUMOCOCCAL VACCINE 50+ YEA RS (1 of 2 - PCV) 1978 BREAST CANCER SCREENING 1999 COLORECTAL SCREENING 2004 Colorectal Cancer Screening 2004 FIT-DNA Q 3 years 2004 FIT/FOBT Q 1 year 2004 Flex Sig/CT Colonography Q 5 years 2004 ZOSTER VACCINE (1 of 2) 2009 RSV VACCINE (60+ or ) (1 - Risk 60-74 years 1-dose series) 2019 OSTEOPOROSIS SCREENING 2024 INFLUENZA VACCINE (#1) 2024 06/21/2021, 2016 COVID-19 Vaccine (2023- season) 2024 10/25/2021, 02/05/2021, 01/15/2021 DTAP/TDAP/TD VACCINES (2 - T d or Tdap) 08/09/2033 08/09/2023 Insurance [facility] [id number] Care Teams Book Jogger Relationship Specialty Start Date End Date Connor Moore MD [address] [place] [address] PCP - General Internal Medicine 01/21/22
--- OUTSIDE RECORDS SUMMARY | 2025-03-09 13:24 | XMS_ITS | Encounter Summary ---
Author Organization [facility] Address [address] [place] [address] Care Team Providers Care Telecommunications Manager Name Role Phone Connor Moore MD Primary Care Provider [phone] Encounter Details Date Type Department Care Team (Late Contact Info) Description 11/30/2024 Results Follow-Up [facility] Pulmonology [facility] [address] [place] [address] Leeann Harrington MD [address] [place] [address] BLOOD GAS ARTERIAL Social History Tobacco Use Types Packs/Day Years Used Date Smoking Tobacco: Former Cigarettes Q uit: 11/29/1976 Smokeless Tobacco: Never Alcohol Use Standard Drinks/Week Comments No 0 (1 standard drink = 0.6 oz pur e alcohol) Comments No Sex and Gender Information Value Date Recorded Sex Assigned at Not on file 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 Gender Identity Not on file Sexual Orientation Not on file documented as of this encounter Plan of Treatment Upcoming Encounters Date Type Department Care Team (Late st Contact Info) Description 05/30/2025 11:45 AM CDT Office Visit [facility] Pulmonology [facility] [address] [place] [address] Leeann Harrington MD [address] [place] [address] documented as of this encounter Visit Diagnoses Not on filedocumented in this encounter Care Teams Telecommunications Manager Relationship Specialty Start Date End Date Connor Moore MD [address] [place] [address] PCP - General Internal Medicine 01/21/22 documented as of this encounter
--- OUTSIDE RECORDS SUMMARY | 2025-03-09 13:24 | XMS_ITS | Clinical Summary ---
Author Organization [facility] Address [address] [place] [address] Care Team Providers Care Employment Advisor Name Role Phone Connor Moore MD Primary Care Provider [phone] Medications MAGNESIUM OXIDE 400 OR Take 400 mg by mouth daily. Active BREZTRI AEROSPHERE 160-9-4.8 MCG/ACT Aerosol Inhale 2 puffs into the lungs 2 (two) times daily. 12/17/2022 Active buPROPion XL (WELLBUTRIN XL) 300 MG 24 hr tablet Take 1 tablet (300 mg total) by mouth every morning. 07/30/2023 Active cetirizine (ZYRTEC) 10 MG tablet Take 1 tablet (10 mg total) by mouth daily. 02/28/2023 Active clonazePAM (KLONOPIN) 0.5 MG tablet Take 1 tablet (0.5 mg total) by mouth 2 (two) times daily. Active cyclobenzaprine (FLEXERIL) 10 MG tablet Take 1 tablet (10 mg total) by mouth 3 (three) times daily as needed. 02/25/2023 Active fluticasone propionate (FLONASE) 50 MCG/ACT nasal spray 2 sprays by Nasal route daily as needed. 11/26/2016 Active Active Problems No known active problems Immunizations Immunization Administration Dates Next Due Tdap (Boostrix) 08/09/2023 Social History Tobacco Use Types Packs/Day Years Used Date Smoking Tobacco: Former Cigarettes Smokeless Tobacco: Never Tobacco Cessation:Counseling Given: Not Answered Comments No Sex and Gender Information Value Date Recorded Sex Assigned at Not on file Legal Sex Female 9:04 PM CDT Gender Identity Not on file Sexual Orientation Not on file Last Filed Vital Signs Vital Sign Reading Time Taken Comments Blood Pressure 165/108 08/09/2023 6:38 PM CDT Pulse 91 08/09/2023 6:38 PM CDT Temperature 36.6 C (97.8 F) 08/09/2023 6:38 PM CDT Respiratory Rate 16 08/09/2023 6:38 PM CDT Oxygen Saturation 99% 08/09/2023 6:38 PM CDT Inhaled Oxygen Concentration - - Weight 71.2 kg (157 lb) 08/09/2023 6:38 PM CDT Height 175.3 cm (5' 9 ) 08/09/2023 6:38 PM CDT Body Mass Index 23.18 08/09/2023 6:38 PM CDT Plan of Treatment Health Maintenance Due Date Last Done Comments Colorectal Cancer Screening Colonoscopy (10 Years) 1959 Hepatitis C 1977 Mammogram Screening 1999 Zoster Vaccines (1 of 2) 2009 Dexa Scan (General) 2024 COVID-19 Vaccine ( season) 2024 10/25/2021, 02/05/2021, 01/15/2021 DTaP, Tdap and Td Vaccines (3 - Td or Tdap) 08/09/2033 08/09/2023, 02/03/2015 RSV Immunization or 60+ Years (1 - 1-dose 75+ series) 2034 Pneumococcal Vaccine: 50+ Years Completed 07/10/2023, 08/18/2018, 10/12/2015, Additional history exists Meningococcal B Vaccine Aged Out No l onger eligible based on patient's age to complete this topic Meningococcal Vaccine Aged Out No tyra em eligible based on patient's age to complete this topic RSV Immunizations Under 20 Months Aged Out No longer eligible based on patient's age to complete this topic Insurance Care Teams Employment Advisor Relationship Specialty Start Date End Date Connor Moore MD [address] [place] [address] PCP - General INTERNAL MEDICINE 08/09/23
[2025-03-10 07:58] LABS: Alanine Aminotransferase 18 U/L (6-35); Albumin Level 4.3 g/dL (3.5-5.1); Alkaline Phosphatase 96 U/L (38-126); Anion Gap 10 mmol/L (4-12); Aspartate Amino Transferase 22 U/L (14-36); Bilirubin,Total 0.3 mg/dL (0.2-1.3); Blood Urea Nitrogen 12 mg/dL (7-17); Calcium 9.3 mg/dL (8.4-10.2); Carbon Dioxide 24 mmol/L (22-30); Chloride 105 mmol/L (98-107); Cholesterol 216 mg/dL (0-200); Estimated Glomerular Filt Rate > 60; Glucose 84 mg/dL (65-110); HDL Direct 56 mg/dL; LDL Cholesterol Calculated 136 mg/dL (<130); Osmolality Calculated 286 mOsm/kg (285-295); Potassium 4.5 mmol/L (3.4-5.0); Sodium 139 mmol/L (137-145); Triglycerides 118 mg/dL (<150)
== END 2025-03-09 12:24 | disposition home or self-care (01) ==
LOC: CHSLAB 12:26
PROVIDERS: PCP Internal Medicine; Visit Provider Internal Medicine
DX: J44.9 Chronic obstructive pulmonary disease, unspecified (principal); F41.0 Panic disorder [episodic paroxysmal anxiety]; L30.9 Dermatitis, unspecified; Z13.6 Encounter for screening for cardiovascular disorders
CPT/HCPCS: 36415; 80053; 80061; 81003; 84443; 85025

== ENCOUNTER 2025-06-13 16:23 | Emergency (ER) | payer MEDICARE, SELFPAY ==
[2025-06-13 16:23] VITALS: BP 142/102; PULSE 98; RESP 16; TEMP 36.5; O2SAT 96
--- OUTSIDE RECORDS SUMMARY | 2025-06-13 16:25 | XMS_ITS | Clinical Summary ---
Author Organization [facility] Address [address] [place] [address] Phone Care Team Providers Care Investigator Internal Affairs Name Role Phone Connor Moore MD Primary Care Provider [phone] Allergies Active Allergy Reactions Criticality Noted Date [...] mg by mouth 2 times daily. Active acetaminophen (TYLENOL) 325 mg tablet Take 325 mg by mouth every 4 hours as needed. Active fluticasone propionate (FLONASE) 50 mcg/spray [place], Suspension nasal inhaler Administer 2 Sprays in [...] Take by inhalation 2 times daily. Active Breztri Aerosphere 160 mcg-9mcg-4.8mcg/ actuation HFA aerosol inhaler INHALE TWO PUFFS BY MOUTH TWICE A DAY 10.7 Gram 8 5 Active predniSONE 10 mg Tablets, Dose Pack 4 po qd x 3 days, then 3 po qd x 3 days, then 2 po qd x 3 days, then 1 po qd x 3 days. 30 Tablet 5 Active levoFLOXacin (LEVAQUIN) 750 mg tablet Take 1 Tablet (750 mg) by mouth daily. 7 Tablet 5 Active lactobacillus rhamnosus-inulin (CULTURELLE PROBIOTIC) 10 billion cell -200 mg Tablet, Chewable Take 1 Tablet by mouth daily. 30 Tablet 5 Active levalbuterol (Xopenex) 0.63 mg/3 mL Solution for Nebulization Take 3 mL (0.63 mg) by inhalation every 8 hours as needed for Shortness of Breath. 270 mL 8 5 Active levalbuterol HFA (XOPENEX HFA) 45 mcg/Actuation HFA Aerosol Inhaler Take 2 Puffs by inhalation every 8 hours as needed for Shortness of Breath. 15 Gram 4 5 Active levalbuterol (XOPENEX) 0.63 mg/3 mL Solution for Nebulization Take 3 mL (0.63 mg) by inhalation every 8 hours as needed for Shortness of Breath. 270 mL 2 9 025 Discontin ued(Reord er) Active Problems Problem Noted Date Diagnosed Date DCM (dilated cardiomyopathy) 03/14/2022 Overview (03/14/2022): Added automatically from request for surgery [id number] Abnormal cardiovascular stress test 03/14/2022 Overview (03/14/2022): Added automatically from request for surgery [id number] Pulmonary hypertension 09/19/2021 Atelectasis pulmonary 08/27/2019 Ex-smoker 08/27/2019 Centrilobular emphysema 08/27/2019 Encounter for screening for lung cancer 08/27/20 19 COPD 12/30/2017 Encounters Date Type Department Care Team Description 05/30/2025 11:45 AM CDT Office Visit [facility] Pulmonology [address] [place] [address] Leeann Harrington MD Ex-smoker (Primary Dx); Pulmonary hypertension (CMS/HCC) 05/25/2025 External Device Data STL ABSTRACTION Provider, Abstract 05/24/2025 External Device Data STL ABSTRACTION Provider, Abstract 05/03/2025 External Device Data STL ABSTRACTION Provider, Abstract 04/26/2025 External Device Data STL ABSTRACTION Provider, Abstract 04/05/2025 External Device Data STL ABSTRACTION Provider, Abstract 03/30/2025 External Device Data STL ABSTRACTION Provider, Abstract 03/29/2025 External Device Data STL ABSTRACTION Provider, Abstract 03/28/2025 Refill [facility] Pulmonology [address] [place] [address] Leeann Harrington MD from Last 3 Months Immunizations Immunization Administration Dates Next Due ([employer])(12 YR UP) COVID-19 VACCINE - EMERGENCY USE AUTHORIZATION, MRNA, [id number](PF) 30 MCG/0.3 ML IM SUSP 10/25/2021,02/05/2021,01/15/2021 Influenza Seasonal Unspecifi ed Formulation IM 06/21/2021,08/10/2017 Family History Medical History Relation Name Comments Arrhythmia Maternal Grandfather Isaac Alymary Heart Attack Maternal Grandfather Isaac Eldon High Cholesterol Maternal Grandfather Isaac Eldon Cancer Mother Abdulaziz Cope High Cholesterol Mother [...] on file Legal Sex 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 Gender Identity Not on file Sexual Orientation Not on file Last Filed Vital Signs Vital Sign Reading Time Taken Comments Blood Pressure 108/78 05/30/2025 11:38 AM CDT Pulse 86 05/30/2025 11:38 AM CDT Temperature 36.5 C (97.7 F) 03/21/2022 10:35 AM CDT Respiratory Rate 16 08/05/2022 1:24 PM CDT Oxygen Saturation 94% 05/30/2025 11:38 AM CDT Inhaled Oxygen Concentration - - Weight 73.3 kg (161 lb 9.6 oz) 05/30/2025 11:38 AM CDT Height 172.7 cm (5' 8) 05/30/2025 11:38 AM CDT Body Mass Index 24.57 05/30/2025 11:38 AM CDT Plan of Treatment Upcoming Encounters Date Type Department Care Team (Late st Contact Info) Description 12/01/2025 11:30 AM PLAN CONSULTANT Office Visit [facility] Pulmonology [facility] [address] [place] [address] Leeann Harrington MD [address] [place] [address] Health Maintenance Due Date Last [...] years 1-dose series) 2019 OSTEOPOROSIS SCREENING 2024 COVID-19 Vaccine ( season) 2024 10/25/2021, 02/05/2021, 01/15/2021 INFLUENZA VACCINE (#1) 2025 06/21/2021, 2016 DTAP/TDAP/TD VACCINES (2 - T d or Tdap) 08/09/2033 08/09/2023 Insurance [facility] [id number] Care Teams Investigator Internal Affairs Relationship Specialty Start Date End Date Connor Moore MD [address] [place] [address] PCP - General Internal Medicine 01/21/22
--- OUTSIDE RECORDS SUMMARY | 2025-06-13 16:25 | XMS_ITS | Clinical Summary ---
Author Organization [facility] Address [address] [place] [address] Care Team Providers Care Cloud Operations Engineer Name Role Phone Connor Moore MD Primary Care Provider [phone] Medications MAGNESIUM OXIDE 400 OR Take 400 [...] 6:38 PM CDT Height 175.3 cm (5' 9) 08/09/2023 6:38 PM CDT Body Mass Index 23.18 08/09/2023 6:38 PM CDT Plan of Treatment Health Maintenance Due Date Last Done Comments Colorectal Cancer Screening Colonoscopy (10 Years) 1959 Hepatitis C 1977 Mammogram Screening 1999 Zoster Vaccines (1 of 2) 2009 Annual Medicare Wellness Visit 2024 Dexa Scan (General) 2024 COVID-19 Vaccine ( [...] patient's age to complete [place] [address] Care Teams Cloud Operations Engineer Relationship Specialty Start Date End Date Connor Moore MD [address] [place] [address] PCP - General INTERNAL MEDICINE 08/09/23
--- OUTSIDE RECORDS SUMMARY | 2025-06-13 16:25 | XMS_ITS | Encounter Summary ---
Author Organization [facility] Address [address] [place] [address] Care Team Providers Care Sanitation Worker Cleaning Machinery Name Role Phone Connor Moore MD Primary Care Provider [phone] Encounter Details Date Type Department Care Team (Late Contact Info) Description 11/30/2024 Results Follow-Up [facility] Pulmonology [facility] [address] [place] [address] Leeann Harrington MD [address] [place] [address] BLOOD GAS ARTERIAL Social History Tobacco Use Types Packs/Day Years Used Date Smoking Tobacco: Former Cigarettes Q uit: 11/29/1976 Smokeless Tobacco: Never Alcohol Use Standard Drinks/Week Comments No 0 (1 standard drink = 0.6 oz pur e alcohol) Comments No Sex and Gender Information Value Date Recorded Sex Assigned at Not on file Legal Sex Female 2:49 PM WEB MARKETING MANAGER Gender Identity Not on file Sexual Orientation Not on file documented as of this encounter Plan of Treatment Upcoming Encounters Date Type Department Care Team (Late st Contact Info) Description 12/01/2025 11:30 AM WEB MARKETING MANAGER Office Visit [facility] Pulmonology [facility] [address] [place] [address] Leeann Harrington MD [address] [place] [address] documented as of this encounter Visit Diagnoses Not on filedocumented in this encounter Care Teams Sanitation Worker Cleaning Machinery Relationship Specialty Start Date End Date Connor Moore MD [address] [place] [address] PCP - General Internal Medicine 01/21/22 documented as of this encounter
--- NOTE | 2025-06-13 16:26 | ED.GENADULT ---
HPI - General Adult General Chief complaint: Unspecified Stated complaint: Insect sting Time Seen by Provider: 06/13/25 16:24 History of Present Illness HPI narrative: Pt presents with a insect sting to left scalp. Pt was working in yard outside and got stung. Pt says she got stung years ago and her hand swelled and she was told she was allergic. Pt denies throat selling or SOB. Related Data Home Medications ?Medication ?Instructions ?Recorded ?Confirmed ?Last Taken ?Type bupropion HCl 150 mg tablet,12 hr 300 mg PO DAILY 01/19/20 02/23/24 Unknown History sustained-release clonazepam 0.5 mg tablet 0.5 mg PO BID PRN Anxiety 01/19/20 02/23/24 Unknown History budesonide 160 mcg-glycopyr 9 2 inh inhalation BID 02/24/23 02/23/24 Unknown History mcg-formot 4.8 mcg/actuation HFA inhaler (Breztri Aerosphere) montelukast 10 mg tablet 10 mg PO DAILY 09/01/23 02/23/24 Unknown History Allergies Allergy/AdvReac Type Severity Reaction Status Date / Time Penicillins Allergy Rash Verified 06/13/25 16:25 Review of Systems Review of Systems: All systems reviewed & are unremarkable except as noted in HPI and below PMFSH Past Medical History Medical History Allergies Anxiety COPD (chronic obstructive pulmonary disease) Eczema Skin cancer Surgical History Surgical History History of reversal of tubal ligation History of tubal ligation Family History Family History Mother Asthma Hypertension Sibling Cancer Thyroid disorder Grandparent Hypertension Social History Social History Smoking status: Former smoker Alcohol intake: never Substance use: never Do You Feel Safe in your Home?: Yes Lack of Transportation: No Lack of Food: Never True Current Housing: I Have Housing Concerned About Future Housing: No Difficulty Paying Gas/Electric Bills: No Difficulty Paying for Meds: No Currently Unemployed: No Education: High School Diploma/GED Difficulty w/ Childcare or Family Care: No Gender identity (if verbalized by the patient): Female Spiritual care concerns: No Exam Const: General: cooperative, healthy appearing and no acute distress Nutritional Appearance: well nourished Orientation/consciousness: patient oriented x3 Limitations: no limitations HENMT: Head: normal to inspection Mouth: Yes Normal oral and palatal mucosa present Throat: posterior oropharynx normal Eyes: Pupils: Equal, round and reactive pupils present EOM: EOMs intact bilaterally Neck: Neck: normal visual inspection, full ROM, no lymphadenopathy and no meningeal signs Chest: Chest palpation & inspection: normal inspection of the chest Resp: Effort & Inspection: normal respiratory effort Auscultation: clear to auscultation bilaterally Cardio: Rate: regular rate Rhythm: regular rhythm GI: Percussion: Yes normal to percussion Auscultation: normal bowel sounds Back/Spine/Pelvis: Back: no CVA tenderness Skin: General skin exam: normal color and no rashes or lesions noted Lesions: no lesions Wounds: no wounds Neuro: General: patient oriented x3 Cranial nerves: Yes CN's II-XII intact bilaterally Speech: normal speech Motor exam (neuro): 5/5 motor strength present throughout Extrem: General: normal to inspection, full ROM and no clubbing, cyanosis or edema Psych: Appearance: grossly normal Mental Status: mental status grossly normal Speech and movement: Normal speech and movement present Affect: normal affect Attitude: cooperative Thought process: Normal thought process present Thought content: Yes Normal thought content present Insight: Good insight present (Psych) Course Vital Signs Vital signs: Vital Signs Temperature 97.7 F 06/13/25 16:23 Pulse Rate 98 06/13/25 16:23 Respiratory Rate 16 06/13/25 16:23 Blood Pressure 142/102 H 06/13/25 16:23 Pulse Oximetry 96 06/13/25 16:23 Oxygen Delivery Room Air 06/13/25 16:23 Temperature 97.7 F 06/13/25 16:23 Pulse Rate 98 06/13/25 16:23 Respiratory Rate 16 06/13/25 16:23 Blood Pressure 142/102 H 06/13/25 16:23 Pulse Oximetry 96 06/13/25 16:23 Oxygen Delivery Room Air 06/13/25 16:23 Medical Decision Making MDM Narrative Medical decision making narrative: Pt stung in scalp and had allergic reaction last time. Pt not SOB and no throat swelling. will treat with benadryl, pepcid and solumedrol will hold on epi for now and recheck. Pt feels better no signs of airway issues. home on otc benadrykl and a few prednisone Vital Signs Vital Signs: Vital Signs Temperature 97.7 F 06/13/25 16:23 Pulse Rate 98 06/13/25 16:23 Respiratory Rate 16 06/13/25 16:23 Blood Pressure 142/102 H 06/13/25 16:23 Pulse Oximetry 96 06/13/25 16:23 Oxygen Delivery Room Air 06/13/25 16:23 Temperature 97.7 F 06/13/25 16:23 Pulse Rate 98 06/13/25 16:23 Respiratory Rate 16 06/13/25 16:23 Blood Pressure 142/102 H 06/13/25 16:23 Pulse Oximetry 96 06/13/25 16:23 Oxygen Delivery Room Air 06/13/25 16:23 Discharge Plan Discharge Clinical Impression: Bee sting reaction Patient Disposition: Home Condition: Improved Instructions: Antibiotic Form, Insect Bite or Sting (ED) Patient Language: Mohawk Prescriptions: New prednisone 50 mg tablet 50 mg PO DAILY Qty: 4 0RF No Action Breztri Aerosphere 160-9-4.8 mcg/actuation Hfa Aerosol Inhaler 2 inh INHALATION BID bupropion HCl 150 mg tablet sustained-release 12 hr 300 mg PO DAILY clonazepam 0.5 mg tablet 0.5 mg PO BID PRN (Reason: Anxiety) montelukast 10 mg tablet 10 mg PO DAILY hydrocodone-acetaminophen 5-325 mg tablet 1 tablet PO Q6H PRN (Reason: pain) Qty: 20 0RF docusate sodium [Colace] 100 mg capsule 100 mg PO BID Qty: 20 0RF Follow-up/Referrals: Connor Moore MD [Primary Care Provider] -
[2025-06-13] MEDS: FAMOTIDINE 20 MG/2 ML VIAL IV PUSH (16:46)
[2025-06-13] MEDS: SODIUM CHLORIDE 0.9% IV 1,000 ML 999 ML IV CONT (16:47)
[2025-06-13] MEDS: ONDANSETRON INJ 4 MG/2 ML VIAL IV PUSH (17:07)
[2025-06-13 17:43] VITALS: BP 146/79; PULSE 89; RESP 16; TEMP 36.5; O2SAT 98
== END 2025-06-13 17:43 | disposition home or self-care (01) ==
PROVIDERS: Emergency Provider Emergency Medicine; PCP Internal Medicine
DX: T63.441A Toxic effect of venom of bees, accidental (unintentional), initial encounter (principal); J44.9 Chronic obstructive pulmonary disease, unspecified; Z87.891 Personal history of nicotine dependence
CPT/HCPCS: 96361; 96374; 96375; 99284; J1200; J2405; J2919; J7030

== ENCOUNTER 2025-07-04 15:19 | Outpatient (CLI) | payer MEDICARE, SELFPAY ==
--- NOTE | ~2025-07-04 | MM_ITS ---
EXAMINATION: MM scrn lorrie implant BI w quentin INDICATION: Asymptomatic, referred for screening mammogram COMPARISON: 12/31/2021 through 04/27/2018 TECHNIQUE: Digital Breast Tomosynthesis CC, MLO, and implant displaced CC and MLO views of Both breasts were obtained with computer-aided detection to assist in interpretation of the study. FINDINGS: There are scattered areas of fibroglandular density. Bilateral breast Retroglandular Saline implants in place appears intact. No focal dominant mass, architectural distortion, or suspicious microcalcifications are identified. There are no features to suggest malignancy. IMPRESSION: 1. No evidence of malignancy in the breasts. 2. Both breasts Retroglandular Saline implants appears intact. Recommend continued screening mammography BI-RADS 1, NEGATIVE Reviewed, dictated and finalized at location B.
== END 2025-07-04 15:20 | disposition home or self-care (01) ==
LOC: MICIMG 15:19
PROVIDERS: PCP Internal Medicine; Visit Provider Internal Medicine
DX: Z12.31 Encounter for screening mammogram for malignant neoplasm of breast (principal); Z98.82 Breast implant status
CPT/HCPCS: 77063; 77067

== ENCOUNTER 2025-09-23 20:24 | Emergency (ER) | payer MEDICARE, SELFPAY ==
[2025-09-23] VITALS (13 sets, daily range): BP systolic 137–167; BP diastolic 87–110; PULSE 77–92; RESP 12–25; TEMP 36.7; O2SAT 95–99
--- NOTE | ~2025-09-23 | CT_ITS ---
CTA chest abdomen pelvis HISTORY:pleuritic pain . COMPARISON: None. 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 Post-processing on an independent workstation was performed to reconstruct MIP images for evaluation of the thoracic vasculature. FINDINGS: There is no pulmonary embolism, aortic dissection, or pericardial fluid. Aneurysmal dilatation of the ascending aorta measuring 4.1 cm. Centrilobular emphysema are noted. No discrete pulmonary nodule, focal consolidation or pneumothorax. No pleural effusion. There is no axillary, mediastinal or hilar adenopathy. Limited evaluation of the upper abdomen demonstrates no gross abnormalities. Review of bone windows demonstrates no osteoblastic or lytic lesions. IMPRESSION: There is no pulmonary embolism, aortic dissection, pericardial fluid. Aneurysmal dilatation of the ascending aorta. No acute lung findings. All CT scans at this facility are performed using low dose modulation techniques as appropriate to perform exam including the following: automated exposure control; use of iterative reconstruction technique; adjustment of the mA and/or kV according to patient size (this includes techniques or standardized protocols for targeted exams where dose is matched to indication/reason for exam). PROCEDURE: CTA chest abdomen pelvis INDICATION: pleuritic pain . COMPARISON: None. TECHNIQUE: Axial 2.5 mm images of the abdomen and pelvis were obtained without and with infusion of 100 cc Isovue-300 intravenous contrast. On an independent workstation, 0.625 mm reformatted images were utilized to render MIP and MPR reconstructed images of the abdominal and pelvic vasculature. FINDINGS: The abdominal aorta, visceral vessels and renal arteries demonstrate normal caliber and patency. No hemodynamically significant stenosis or aneurysm is identified. The iliac and visualized femoral vessels are widely patent. No aneurysm or hemodynamically significant stenosis is noted. NONVASCULAR FINDINGS: The liver parenchyma is unremarkable. No intrahepatic mass or ductal dilatation is evident. The gallbladder is unremarkable. The pancreas and spleen are normal in appearance. The adrenal glands are symmetric in size. The kidneys are unremarkable. No intrarenal stones are noted. There is no hydronephrosis. The stomach and bowel loops are unremarkable. The bladder and rectum are normal in appearance. No free fluid or air is evident. There is no abdominal or pelvic lymphadenopathy. The lower thoracic and lumbar spines are unremarkable. The lung bases are clear. IMPRESSION: No aneurysm or dissection within the abdominal aorta. There is no hemodynamically significant stenosis. All CT scans at this facility are performed using low dose modulation techniques as appropriate to perform exam including the following: automated exposure control; use of iterative reconstruction technique; adjustment of the mA and/or kV according to patient size (this includes techniques or standardized protocols for targeted exams where dose is matched to indication/reason for exam). Reviewed, dictated and finalized at location S. PICKER IMPRESSION: There is no pulmonary embolism, aortic dissection, pericardial fluid. Aneurysma l dilatation of the ascending aorta. No acute lung findings. All CT scans at this facility are performed using low dose modulation techniqu es as appropriate to perform exam including the following: automated exposure c ontrol; use of iterative reconstruction technique; adjustment of the mA and/or kV according to patient size (this includes techniques or standardized protocol s for targeted exams where dose is matched to indication/reason for exam). PROCEDURE: CTA chest abdomen pelvis INDICATION: pleuritic pain . COMPARISON: None. TECHNIQUE: Axial 2.5 mm images of the abdomen and pelvis were obtained without and with infusion of 100 cc Isovue-300 intravenous contrast. On an independent workstation, 0.625 mm reformatted images were utilized to render MIP and MPR re constructed images of the abdominal and pelvic vasculature. FINDINGS: The abdominal aorta, visceral vessels and renal arteries demonstrate normal caliber and patency. No hemodynamically significant stenosis or aneurysm is identified. The iliac and visualized femoral vessels are widely patent. No aneurysm or hemodynamically significant stenosis is noted. NONVASCULAR FINDINGS: The liver parenchyma is unremarkable. No intrahepatic mas s or ductal dilatation is evident. The gallbladder is unremarkable. The pancrea s and spleen are normal in appearance. The adrenal glands are symmetric in siz e. The kidneys are unremarkable. No intrarenal stones are noted. There is no hydronephrosis. The stomach and bowel loops are unremarkable. The bladder and rectum are normal in appearance. No free fluid or air is evident. There is no a bdominal or pelvic lymphadenopathy. The lower thoracic and lumbar spines are un remarkable. The lung bases are clear. IMPRESSION: No aneurysm or dissection within the abdominal aorta. There is no hemodynamical ly significant stenosis. All CT scans at this facility are performed using low dose modulation techniqu es as appropriate to perform exam including the following: automated exposure c ontrol; use of iterative reconstruction technique; adjustment of the mA and/or kV according to patient size (this includes techniques or standardized protocol s for targeted exams where dose is matched to indication/reason for exam).
--- NOTE | ~2025-09-23 | XR_ITS ---
XR chest 2V HOSTORY: chest pain LEFT SIDED COMPARISON:[ None] FINDINGS: Frontal and lateral views of the chest were obtained. The lungs are clear. The heart size is normal in size. Pulmonary vasculature is unremarkable. Osseous structures are intact. IMPRESSION: No acute lung findings.] [ ] Reviewed, dictated and finalized at location S. UREMENT ADVISOR
--- NOTE | 2025-09-23 20:27 | ECG_ITS ---
Test Date: 2025-09-23 20:32:51 Measurements Intervals [place] Rate: 84 P: 70 [place]: 120 QRS: 66 QRSD: 106 T: 68 QT: 402 QTc: 477 Interpretive Statements SINUS RHYTHM WITH OCCASIONAL VENTRICULAR PREMATURE COMPLEXES NONSPECIFIC ST & T-WAVE ABNORMALITY No previous ECG available for comparison Electronically Signed On 09-24-2025 10:52:01 SIDEROGRAPHER by Bismark Villanueva D.O
--- OUTSIDE RECORDS SUMMARY | 2025-09-23 20:44 | XMS_ITS | Clinical Summary ---
Author Organization [facility] Address [address] [place] [address] Phone Care Team Providers Care Abattoir Supervisor Name Role Phone Connor Moore MD Primary Care Provider [phone] Allergies Active Allergy Reactions Criticality Noted Date [...] needed. Active fluticasone propionate (FLONASE) 50 mcg/spray [place], Suspension nasal inhaler Administer 2 Sprays in [...] 2 times daily. Active Breztri Aerosphere 160 mcg-9mcg-4.8mcg/a ctuation HFA aerosol inhaler INHALE TWO PUFFS BY [...] of Breath. 15 Gram 4 5 Active Active Problems Problem Noted Date Diagnosed Date DCM (dilated cardiomyopathy) 03/14/2022 Overview (03/14/2022): Added automatically from request for surgery [id number] Abnormal cardiovascular stress test 03/14/2022 Overview (03/14/2022): Added automatically from request for surgery [id number] Pulmonary hypertension 09/19/2021 Atelectasis pulmonary 08/27/2019 Ex-smoker 08/27/2019 Centrilobular emphysema 08/27/2019 Encounter for screening for lung cancer 08/27/20 19 COPD 12/30/2017 Encounters Date Type Department Care Team Description 09/13/2025 External Device Data STL ABSTRACTION Provider, Abstract 07/26/2025 External Device Data STL ABSTRACTION Provider, Abstract from Last 3 Months Immunizations Immunization Administration Dates Next Due ([employer])(12 YR UP) COVID-19 VACCINE - EMERGENCY USE AUTHORIZATION, MRNA, [id number](PF) 30 MCG/0.3 ML IM SUSP 10/25/2021,02/05/2021,01/15/2021 Influenza [...] on file Legal Sex Female 2:49 PM MONOTYPER Gender Identity Not on file Sexual Orientation [...] Care Team (Late st Contact Info) Description 10/17/2025 11:45 AM MONOTYPER Appointment [facility] Imaging Services [address] [place] [address] Leeann Harrington MD [address] [place] [address] 12/01/2025 11:30 AM MONOTYPER [facility] [address] [place] [address] Leeann Harrington MD [address] [place] [address] Health Maintenance Due Date Last Done Comments PNEUMOCOCCAL VACCINE 50+ YEA RS (1 of 2 - PCV) 1978 BREAST CANCER SCREENING 1999 COLORECTAL SCREENING 2004 Colorectal Cancer Screening 2004 FIT-DNA Q 3 years 2004 FIT/FOBT Q 1 year 2004 Flex Sig/CT Colonography Q 5 years 2004 RSV VACCINE (60+ or ) (1 - Risk 50-74 years 1-dose series) 2009 ZOSTER VACCINE (1 of 2) 2009 OSTEOPOROSIS SCREENING 2024 INFLUENZA VACCINE (#1) 2025 06/21/2021, 2016 COVID-19 Vaccine ( season) 2025 10/25/2021, 02/05/2021, 01/15/2021 DTAP/TDAP/TD VACCINES (2 - T d or Tdap) 08/09/2033 08/09/2023 Insurance [facility] [address] [address] [place] [id number] Care Teams Abattoir Supervisor Relationship Specialty Start Date End Date Connor Moore MD [address] [place] [address] PCP - General Internal Medicine 01/21/22
--- OUTSIDE RECORDS SUMMARY | 2025-09-23 20:44 | XMS_ITS | Encounter Summary ---
Author Organization [facility] Address [address] [place] [address] Care Team Providers Care Motor Expert Name Role Phone Connor Moore MD Primary Care Provider [phone] Encounter Details Date Type Department Care Team (Late st Contact Info) Description 11/30/2024 Results Follow-Up [facility] Pulmonology [place] [address] [place] [address] Leeann Harrington MD [facility] [address] [place] [address] BLOOD GAS ARTERIAL Social History Tobacco Use Types Packs/Day Years Used Date Smoking Tobacco: Former Cigarettes Q uit: 11/29/1976 Smokeless Tobacco: Never Alcohol Use Standard Drinks/Week Comments No 0 (1 standard drink = 0.6 oz pur e alcohol) Comments No Sex and Gender Information Value Date Recorded Sex Assigned at Not on file Legal Sex Female 2:49 PM WINDOW MAKER Gender Identity Not on file Sexual Orientation Not on file documented as of this encounter Plan of Treatment Upcoming Encounters Date Type Department Care Team (Late st Contact Info) Description 10/17/2025 11:45 AM WINDOW MAKER Appointment [facility] Imaging Services [address] [address] Leeann Harrington MD [facility] [address] [place] [address] 12/01/2025 11:30 AM WINDOW MAKER [facility] [place] [address] [place] [address] Leeann Harrington MD [address] [place] [address] documented as of this encounter Visit Diagnoses Not on filedocumented in this encounter Care Teams Motor Expert Relationship Specialty Start Date End Date Connor Moore MD [address] [place] [address] PCP - General Internal Medicine 01/21/22 documented as of this encounter
--- OUTSIDE RECORDS SUMMARY | 2025-09-23 20:44 | XMS_ITS | Clinical Summary ---
Author Organization [facility] Address [address] [place] [address] Care Team Providers Care Compressor Operator Portable Name Role Phone Connor Moore MD Primary Care Provider [phone] Medications MAGNESIUM OXIDE 400 OR Take 400 [...] Scan (General) 2024 COVID-19 Vaccine ( season) 2025 10/25/2021, 02/05/2021, 01/15/2021 Influenza Adult (#1) 2025 10/21/2022, 06/28/2021, 07/21/2020, Additional history exists DTaP, Tdap and Td Vaccines (3 - Td or Tdap) 08/09/2033 08/09/2023, 02/03/2015 RSV Immunization or 60+ Years (1 - 1-dose 75+ series) 2034 Pneumococcal Vaccine: 50+ Years Completed 07/10/2023, 08/18/2018, 10/12/2015, Additional history exists Hepatitis A Vaccines Aged Out No long er eligible based on patient's age to complete this topic Meningococcal B Vaccine Aged Out No l onger eligible based on patient's age to complete this topic Meningococcal Vaccine Aged Out No tyra em eligible based on patient's age to complete this topic RSV Immunizations Under 20 Months Aged Out No longer eligible based on patient's age to complete this topic Insurance [facility] MEDIC[facility] Care Teams Compressor Operator Portable Relationship Specialty Start Date End Date Connor Moore MD [address] [place] [address] PCP - General INTERNAL MEDICINE 08/09/23
[2025-09-23 20:45] LABS: Hematocrit 40.9 % (37.0-47.0); Hemoglobin 13.3 g/dL (12.0-15.0); Immature Granulocyte Percent A 0.3 % (0-0.5); Lymphocytes Absolute Auto 1.56 K/mm3 (0.9-3.2); Mean Corpuscular HGB Conc 32.5 g/dl (32-36); Mean Corpuscular Hemoglobin 31.7 pg (26-34); Mean Corpuscular Volume 97.6 fl (80-100); Nucleated Red Blood Cells Absolute Auto 0.000 K/mm3 (0.0-0.012); Nucleated Red Blood Cells Perc 0.0 % (0.0-0.2); Platelet Count Result 302 k/mm3 (150-375); Red Blood Count 4.19 M/mm3 (4.2-5.4); White Blood Count 9.7 K/mm3 (4.5-10.0)
--- NOTE | 2025-09-23 20:45 | ED_ITS ---
HPI - General Adult General Chief complaint: Chest Pain Stated complaint: CHEST PAIN Time Seen by Provider: 09/23/25 20:30 History of Present Illness HPI narrative: This is a 65-year-old female with history of COPD, anxiety and in aortic aneurysm presenting for left-sided chest pain. At 7:00 p.m. patient driving her car when she developed pleuritic pain in left side of her chest. It was nonradiating severe in intensity lasted for 1 hour before resolved to a very minor pain. Pain was worse with deep breaths. She never had pain like this before. No recent viral illness. No fevers productive cough. She does think her COPD is acting up. She is not any swelling of her lower extremities. Related Data Home Medications ?Medication ?Instructions ?Recorded ?Confirmed ?Last Taken ?Type bupropion HCl 150 mg tablet,12 hr 300 mg PO DAILY 01/0802/23/24 Unknown History sustained-release clonazepam 0.5 mg tablet 0.5 mg PO BID PRN Anxiety 02/23/24 Unknown History budesonide 160 mcg-glycopyr 9 2 inh inhalation BID 02/23/24 Unknown History mcg-formot 4.8 mcg/actuation HFA inhaler (Breztri Aerosphere) montelukast 10 mg tablet 10 mg PO DAILY 09/01/2302/08 Unknown History Allergies Allergy/AdvReac Type Severity Reaction Status Date / Time Penicillins Allergy Rash Verified 06/13/25 16:25 PMFSH Past Medical History Medical History Allergies Anxiety COPD (chronic obstructive pulmonary disease) Eczema Skin cancer Surgical History Surgical History History of reversal of tubal ligation History of tubal ligation Family History Family History Mother Asthma Hypertension Sibling Cancer Thyroid disorder Grandparent Hypertension Social History Social History Smoking status: Former smoker Alcohol intake: never Substance use: never Do You Feel Safe in your Home?: Yes Lack of Transportation: No Lack of Food: Never True Current Housing: I Have Housing Concerned About Future Housing: No Difficulty Paying Gas/Electric Bills: No Difficulty Paying for Meds: No Currently Unemployed: No Education: High School Diploma/GED Difficulty w/ Childcare or Family Care: No Gender identity (if verbalized by the patient): Female Spiritual care concerns: No Exam 2 Narrative: APPEARANCE: Anxious appearing Head: atraumatic. EYES: EOMI, NOSE: Atraumatic NECK: Trachea midline RESPIRATORY: No increased rate of breathing, speaking in full sentences, mildly decreased air entry with slight expiratory wheezing CARDIOVASCULAR: RRR, no peripheral edema +2 pulses in all extremities ABDOMINAL: Non-distended soft nontender MUSCULOSKELETAl: No obvious deformities NEURO: Alert. Moving 4/4 extremities SKIN:: Warm, dry. Normal color PSYCHIATRIC: Normal affect Course Vital Signs Vital signs: Vital Signs Temperature 98.0 F 09/23/25 20:31 Pulse Rate 81 09/23/25 20:31 Respiratory Rate 24 H 09/23/25 20:31 Blood Pressure 167/110 H 09/23/25 20:31 Pulse Oximetry 99 09/23/25 20:31 Oxygen Delivery Room Air 09/23/25 20:31 Temperature 98.0 F 09/23/25 20:31 Pulse Rate 89 09/23/25 23:05 Respiratory Rate 18 09/23/25 23:05 Blood Pressure 137/89 09/23/25 23:05 Pulse Oximetry 95 09/23/25 23:05 Oxygen Delivery Room Air 09/23/25 21:47 Medical Decision Making [facility] Narrative Medical decision making narrative: -Course: 65-year-old female presenting with pleuritic chest pain. CTA of the chest not revealing any acute findings. Laboratory studies including troponin x2 were unremarkable. EKG without ischemic changes. Patient was given a breathing treatment due to history of COPD and reduced air entry. Re-evaluation she is resting comfortably And her pain has improved dramatically. Pain most consistent with COPD exacerbation versus pleurisy. Patient will be discharged to follow-up with her primary care physician for further management. Given return precautions. -DDX includes but is not limited to: PE, pneumonia, viral illness, ACS, pneumothorax, COPD exacerbation -Co-morbidities complicating care: COPD, anxiety -Independent interpretation of studies: labs and imaging reviewed Independent EKG interpretation: Rhythm [sinus], Rate 84, [place] -[normal], AR -[normal], QRS [narrow], QTC [normal], T waves -[negative for concerning inversions], ST Segments - [Negative for concerning elevations] Final interpretations: sinus rhythm with occasional PVCs Vital Signs Vital Signs: Vital Signs Temperature 98.0 F 09/23/25 20:31 Pulse Rate 81 09/23/25 20:31 Respiratory Rate 24 H 09/23/25 20:31 Blood Pressure 167/110 H 09/23/25 20:31 Pulse Oximetry 99 09/23/25 20:31 Oxygen Delivery Room Air 09/23/25 20:31 Temperature 98.0 F 09/23/25 20:31 Pulse Rate 89 09/23/25 23:05 Respiratory Rate 18 09/23/25 23:05 Blood Pressure 137/89 09/23/25 23:05 Pulse Oximetry 95 09/23/25 23:05 Oxygen Delivery Room Air 09/23/25 21:47 Lab Data 09/23/25 20:37 09/23/25 20:37 Labs: Lab Results 09/23/25 09/23/25 Range/Units 20:37 23:31 WBC 9.7 (4.5-10.0) K/mm3 RBC 4.19 L (4.2-5.4) M/mm3 Hgb 13.3 (12.0-15.0) g/dL Hct 40.9 (37.0-47.0) % MCV 97.6 (80-100) fl MCH 31.7 (26-34) pg MCHC 32.5 (32-36) g/dl RDW 12.5 (11.5-14.5) % Plt Count 302 (150-375) k/mm3 MPV 8.9 (7.4-10.4) fl Immature Gran % (Auto) 0.3 (0-0.5) % Neut % (Auto) 72.8 (45.5-73.1) % Lymph % (Auto) 16.1 L (18.3-44.2) % [place] % (Auto) 7.9 (2.6-8.5) % Eos % (Auto) 2.0 (0-4.4) % Baso % (Auto) 0.9 (0.2-1.2) % Lymph # (Auto) 1.56 (0.9-3.2) K/mm3 [place] # (Auto) 0.8 H (0.1-0.6) K/mm3 Eos # (Auto) 0.2 (0-0.3) K/mm3 Baso # (Auto) 0.1 (0.0-0.1) K/mm3 Abs Immat Gran (auto) 0.03 (0.00-0.031) K/mm3 Absolute Neuts (auto) 7.1 H (1.3-6.7) K/mm3 Absolute Nucleated RBC 0.000 (0.0-0.012) K/mm3 Nucleated RBC % 0.0 (0.0-0.2) % PT 13.5 (11.1-14.7) Seconds INR 1.0 APTT 29.8 (22.3-36.8) Seconds Sodium 141 (137-145) mmol/L Potassium 3.4 (3.4-5.0) mmol/L Chloride 106 (98-107) mmol/L Carbon Dioxide 26 (22-30) mmol/L Anion Gap 9 (4-12) mmol/L BUN 7 D (7-17) mg/dL Creatinine 0.82 (0.7-1.0) mg/dL Estim Creat Clear Calc 62 ml/min Estimated GFR > 60 (59 - ) Glucose 103 (65-110) mg/dL Calcium 8.7 (8.4-10.2) mg/dL Total Bilirubin 0.5 (0.2-1.3) mg/dL AST 28 (14-36) U/L ALT 17 (6-35) U/L Alkaline Phosphatase 87 (38-126) U/L Troponin I < 0.012 < 0.012 (0.000-0.034) ng/mL Total Protein 6.9 (6.3-8.2) g/dL Albumin 4.3 (3.5-5.1) g/dL Lipase 104 (23-300) U/L Discharge Plan Discharge Clinical Impression: Pleurisy Patient Disposition: Home Condition: Stable Instructions: Antibiotic Form, Pleurisy (ED) Additional Instructions: You were seen in the emergency department for pleuritic chest pain. Your workup here was reassuring. Please use Motrin Tylenol as needed for pain. Please continue taking your breathing treatments. If you develop any new symptoms such as fevers, worsening chest pain or difficulty breathing please return to the ED for re-evaluation. Otherwise please follow-up with your primary care physician Patient Language: Slovak Prescriptions: No Action Breztri Aerosphere 160-9-4.8 mcg/actuation Hfa Aerosol Inhaler 2 inh INHALATION BID prednisone 50 mg tablet 50 mg PO DAILY Qty: 4 0RF bupropion HCl 150 mg tablet sustained-release 12 hr 300 mg PO DAILY clonazepam 0.5 mg tablet 0.5 mg PO BID PRN (Reason: Anxiety) montelukast 10 mg tablet 10 mg PO DAILY hydrocodone-acetaminophen 5-325 mg tablet 1 tablet PO Q6H PRN (Reason: pain) Qty: 20 0RF docusate sodium [Colace] 100 mg capsule 100 mg PO BID Qty: 20 0RF Follow-up/Referrals: Connor Moore MD [Primary Care Provider, Internal Medicine]
[2025-09-23 20:58] LABS: Alanine Aminotransferase 17 U/L (6-35); Albumin Level 4.3 g/dL (3.5-5.1); Alkaline Phosphatase 87 U/L (38-126); Anion Gap 9 mmol/L (4-12); Aspartate Amino Transferase 28 U/L (14-36); Bilirubin,Total 0.5 mg/dL (0.2-1.3); Blood Urea Nitrogen 7 mg/dL (7-17); Calcium 8.7 mg/dL (8.4-10.2); Carbon Dioxide 26 mmol/L (22-30); Chloride 106 mmol/L (98-107); Estimated CRCL calculation 62 ml/min; Estimated Glomerular Filt Rate > 60; Glucose 103 mg/dL (65-110); Lipase 104 U/L (23-300); Potassium 3.4 mmol/L (3.4-5.0); Sodium 141 mmol/L (137-145); Total Protein 6.9 g/dL (6.3-8.2)
[2025-09-23 21:04] LABS: INR 1.0; Partial Thromboplastin Time 29.8 Seconds (22.3-36.8); Prothrombin Time 13.5 Seconds (11.1-14.7)
[2025-09-23 21:10] LABS: Troponin I < 0.012 ng/mL (0.000-0.034)
[2025-09-23] MEDS: IPRATROPIUM 0.5 MG/ALBUTEROL SULFATE 2.5 MG (BASE) AMPUL.NEB 3 ML 6 ML INHALATION (21:44)
--- NOTE | 2025-09-23 23:25 | ECG_ITS ---
Test Date: 2025-09-23 23:42:41 Measurements Intervals [place] Rate: 77 P: 71 LA: 140 QRS: 61 QRSD: 93 T: 44 QT: 397 QTc: 451 Interpretive Statements SINUS RHYTHM WITH OCCASIONAL SUPRAVENTRICULAR PREMATURE COMPLEXES NONSPECIFIC T-WAVE ABNORMALITY Electronically Signed On 09-24-2025 10:54:19 STEMMER MACHINE by Bismark Villanueva D.O
[2025-09-24 00:03] LABS: Troponin I < 0.012 ng/mL (0.000-0.034)
[2025-09-24 00:33] VITALS: BP 142/85; PULSE 87; RESP 16; O2SAT 98
[2025-09-24 00:34] VITALS: BP 142/85; PULSE 87; RESP 16; O2SAT 98
== END 2025-09-24 00:39 | disposition home or self-care (01) ==
PROVIDERS: Family Medicine; Emergency Provider Emergency Medicine; PCP Internal Medicine
DX: R09.1 Pleurisy (principal); J44.9 Chronic obstructive pulmonary disease, unspecified; I71.21 Aneurysm of the ascending aorta, without rupture; F41.9 Anxiety disorder, unspecified; Z85.828 Personal history of other malignant neoplasm of skin; Z87.891 Personal history of nicotine dependence; Z79.899 Other long term (current) drug therapy; I49.3 Ventricular premature depolarization; R94.31 Abnormal electrocardiogram [ECG] [EKG]
CPT/HCPCS: 36415; 71046; 71275; 74174; 80053; 83690; 84484; 85025; 85610; 85730; 93005; 94640; 99284; Q9967